=== PATIENT | female | born 1950 | race Caucasian/White ===

== ENCOUNTER 2017-08-15 14:49 | Observation (INO) | payer MEDICARE ==
[~2017-08-15] VITALS: Ht 162.6 cm; Wt 105.2 kg
[~2017-08-15 14:49] MED LIST: ACETAMINOPHEN325 M1; ACETAMINOPHEN650 M5 PO; ADULT LOW DOSE81 MG; AMLODIPINE BESYL5 MG PO; AMOXICILLIN/POTASSIU PO; B 12 PO; B-100 COMPLEX100 MG PO; BENADRYL25 MG PO; CALCIUM 500+D1 EAC2 PO; CIPROFLOXACIN500 M1 PO; CLEOCIN HCL300 MG PO; COMBIVENT; COUMADIN; COUMADIN 10MG T10 M1 PO; COUMADIN 2 MG TA2 M1 PO; CRESTOR5 MG PO; DIAZEPAM 10 MG10 M1; DIAZEPAM 10 MG10 M1 OR; ENOXAPARIN100 MG/1 M SQ; ENOXAPARIN80 MG/0.8; FLEXERIL PO; FORTICAL1 SPRAY NASAL; GLUCOPHAGE500 MG PO; HYDROCODON-ACE1 EAC4 PO; HYDROCODON-ACE1 EAC8 PO; HYDROXYCHLOROQ200 M1 PO; IBUPROFEN 400400 M1 PO; LIDODERM TP; LOVENOX; METFORMIN PO; MIACALCIN; MIRALAX255 GM; NEURONTIN 300300 M1 PO; NORCO 5-325 TA1 EACH PO; OXYCODONE HCL 55 MG PO; PERCOCET 5-3251 EACH; PHENERGAN-CODE120 ML; PREDNISONE PO; PRINIVIL5 MG PO; PROLIA60 MG/1 ML SQ; PROVENTIL HFA6.7 G1 INH; SIMETHICON CHEW80 MG; SYMBICORT80 MCG/4.1 INH; TESSALON200 MG PO; TYLENOL EX-STR500 M2 PO; XANAX 0.5 MG0.5 M1 PO; ZOLOFT100 MG PO
--- NOTE | 2017-08-15 15:43 | NUR ---
PATIENT DIRECTLY ADMITTED FROM [facility]. PATIENT REPORTS SNEEZING WHICH CAUSED SEVERE BACK PAIN ON TUESDAY. PATIENT WAITED TO SEE HER PAINTER HELPER SIGN TODAY. PER PATIENT PAINTER HELPER SIGN STATES THERE IS A COMPRESSION FRACTURE, NO IMAGING DONE. ALERT AND ORIENTED. ADMISSION HITORY AND ASSESSMENT CHARTED. PATIENT AMBULATED TO BATHROOM WITH STANDBY ASSIST. NOTIFIED OF PATIENTS ARRIVAL. ORIENTED TO ROOM. WILL CONTINUE TO MONITOR.
[2017-08-15] MEDS ORDERED: METFORMIN HCL500 MG PO (15:50)
[2017-08-15] MEDS ORDERED: FISH OIL 1,001000 M2 PO (15:52)
[2017-08-15] MEDS ORDERED: IRON CHEWS15 M1 PO (15:54)
[2017-08-15] MEDS ORDERED: VITAMIN D2000 UNIT PO (15:54)
[2017-08-15] MEDS ORDERED: HYDROCHLOROTHIA25 M1 PO (15:55)
[2017-08-15] MEDS ORDERED: TYLENOL EXTRA500 MG PO (15:56)
[2017-08-15] MEDS ORDERED: HYDROCODONE-AP1 EAC6 PO (15:57)
[2017-08-15 16:00] VITALS: BP 132/82
[2017-08-15 17:56] LABS: ABSOLUTE BASOPHILS 0.1 thou/uL (0.0-0.2); ABSOLUTE EOSINOPHILS 0.4 thou/uL (0.0-0.7); ABSOLUTE LYMPHOCYTES 3.3 thou/uL (0.8-5.3); ABSOLUTE MONOCYTES 0.3 thou/uL (0.0-1.2); ABSOLUTE NEUTROPHILS 5.8 thou/uL (1.6-8.1); BASOPHILS 0.8 %; EOSINOPHILS 3.8 %; HEMATOCRIT 43.8 % (37.0-47.0); HEMOGLOBIN 14.5 gm/dL (12.0-15.0); LYMPHOCYTES 33.9 %; MCH 29.5 pg (26.0-34.0); MCHC 33.1 g/dL (28.0-37.0); MONOCYTES 2.7 %; MPV 7.6 fl. (7.2-11.1); NUCLEATED RBCS 0 /100WBC; PLATELET COUNT* 388 thou/uL (150-400); POLYS 58.8 %; RBC 4.92 mil/uL (4.20-5.00); WBC 9.8 thou/uL (4.0-11.0)
[2017-08-15 18:06] LABS: INR 2.5; PROTIME 24.3 Seconds (9.20-11.50)
[2017-08-15 18:16] LABS: ALBUMIN 3.7 g/dL (3.4-5.0); CALCIUM 9.5 mg/dL (8.5-10.1); CREATININE 0.9 mg/dL (0.6-1.3); PHOSPHORUS* 3.1 mg/dL (2.5-4.9)
[2017-08-15 20:00] VITALS: BP 120/76
[2017-08-15 20:58] LABS: URINE BILIRUBIN NEGATIVE (Negative); URINE BLOOD 2+ (Negative); URINE CLARITY CLEAR; URINE COLOR YELLOW; URINE GLUCOSE-RANDOM NEGATIVE (Negative); URINE KETONES NEGATIVE (Negative); URINE LEUKOCYTES-REFLEX NEGATIVE (Negative); URINE NITRITE-REFLEX NEGATIVE (Negative); URINE PROTEIN NEGATIVE (Negative); URINE SPECIFIC GRAVITY 1.015 (1.005-1.030); URINE UROBILINOGEN 0.2 E.U./dl (0.2-1.0)
[2017-08-15 21:10] LABS: SQUAMOUS >10 Many /LPF (0-3)
[2017-08-15 21:11] LABS: BACTERIA-REFLEX None Seen /HPF (None Seen); CASTS None Seen /LPF (None Seen); CRYSTALS None Seen /LPF (None Seen); URINE RBC 3-10 Few /HPF (0-2); URINE WBC-REFLEX None Seen /HPF (0-5)
[2017-08-16 00:16] VITALS: BP 126/76
--- NOTE | 2017-08-16 01:38 | NUR ---
RECIEVED REPORT AND ASSUMED CARE OF PATIENT AT 1930. ASSESSMENT AND VITAL COMPLETED CHARTED, VSS. PATIENT A&OX4. PATIENT ON ROOM AIR WITH O2 SATS >92%. PATIENT C/O PAIN IN BACK, RELIEVED WITH RELAXATION, MUSCLE RUB, AND PRN PAIN MEDICATION. PATIENT UP STANDBY ASSIST TO BATHROOM. PATIENT RESTING COMFORTABLY AT THIS TIME. CALL LIGHT WITHIN REACH
--- NOTE | 2017-08-16 07:30 | NUR ---
RECEIVED REPORT FROM NIGHT NURSE BEING RELIEVED AT APPROXIMATELY 0330. PATIENT IS ALERT AND ORIENTED X 4. VSS ON RA. PAIN CONTROLLED WITH ORAL PAIN MEDICATION AND CHARTED. PATIENT IS UP WITH SBA AND STEADY. IV IN RIGHT AC-SL. PATIENT INSTRUCTED TO USE CALL LIGHT WHEN NEEDING ASSISTANCE. HOURLY ROUNDS MADE. WILL CONTINUE WITH PLAN OF CARE AND NURSING TO MONITOR.
[2017-08-16 08:00] VITALS: BP 127/74
[2017-08-16] MEDS ORDERED: PERCOCET 7.5-31 EACH PO (14:34)
[2017-08-16] MEDS ORDERED: [UNRECOGNIZED DRUG - OTHER] TRANSDERM (14:34)
[2017-08-16] MEDS ORDERED: LIDODERM1 EACH TRANSDERM (14:34)
[2017-08-16] MEDS ORDERED: METAMUCIL1 EAC1 PO (15:26)
[2017-08-16 16:02] VITALS: BP 127/74
[2017-08-16 16:05] VITALS: BP 127/74
--- NOTE | 2017-08-16 18:22 | NUR ---
ALERT AND ORIENTED X4. UP WITH STANDBY ASSIST. PAIN MANAGED WITH IV PAIN MEDICATION IN THE AM. PAIN MANAGED WITH PO PAIN MEDICATION IN PM. IV IS PATENT AND SALINE LOCKED. VITAL SIGNS STABLE ON ROOM AIR. HOURLY ROUNDS HAVE BEEN MAINTAINED THROUGHOUT SHIFT. TOLERATED CARB CONTROL DIET THROUGHOUT SHIFT. CALL LIGHT WITHIN REACH. BED ALARM ON. NURSING WILL CONTINUE TO MONITOR.
--- NOTE | 2017-08-16 18:32 | NUR ---
ALERT AND ORIENTED X4. UP WITH STANDBY ASSIST. PAIN MANAGED WITH IV PAIN MEDICATION IN THE AM. PAIN MANAGED WITH PO PAIN MEDICAITON IN PM. IV DISCONTINUED. VITAL SIGNS STABLE ON ROOM AIR. HOURLY ROUNDS HAVE BEEN MAINTAINED THROUGHOUT SHIFT. TOLERATED CARB CONTROL DIET THROUGHOUT SHIFT. DISCHARGE INSTRUCTIONS AND PRESCRIPTIONS WENT OVER WITH PATIENT. BELONGINGS WITH PATIENT AND READY FOR DISCHARGE. PATIENT WILL DISCHARGE WHEN HER RIDE ARRIVES. NURSING WILL CONTINUE TO MONITOR UNTIL THEN.
[2017-08-16 19:24] VITALS: BP 127/74
== END 2017-08-16 19:25 | disposition home or self-care (01) ==
LOC: M.ORTHSURG 14:49 → M.TBA 15:05 → M.ORTHSURG 15:22
PROVIDERS: ADMIT Internal Medicine
DX: M51.36 Other intervertebral disc degeneration, lumbar region (principal); I10 Essential (primary) hypertension; J44.9 Chronic obstructive pulmonary disease, unspecified; E11.9 Type 2 diabetes mellitus without complications; M81.0 Age-related osteoporosis without current pathological fracture; E66.9 Obesity, unspecified; Z68.39 Body mass index [BMI] 39.0-39.9, adult; Z86.711 Personal history of pulmonary embolism; Z79.01 Long term (current) use of anticoagulants; Z86.73 Personal history of transient ischemic attack (TIA), and cerebral infarction without residual deficits; Z87.891 Personal history of nicotine dependence

== ENCOUNTER → 2018-06-07 | Outpatient (CLI) | payer MEDICARE ==
[~2018-06-07] MED LIST changes: +FISH OIL 1,001000 M2 PO; +HYDROCHLOROTHIA25 M1 PO; +HYDROCODONE-AP1 EAC6 PO; +IRON CHEWS15 M1 PO; +LIDODERM1 EACH TRANSDERM; +METAMUCIL1 EAC1 PO; +METFORMIN HCL500 MG PO; +PERCOCET 7.5-31 EACH PO; +TYLENOL EXTRA500 MG PO; +VITAMIN D2000 UNIT PO; +[UNRECOGNIZED DRUG - OTHER] TRANSDERM
== END ==
LOC: M.MRI 06-01 08:30
DX: M47.26 Other spondylosis with radiculopathy, lumbar region (principal); M43.16 Spondylolisthesis, lumbar region; M51.16 Intervertebral disc disorders with radiculopathy, lumbar region; M48.062 Spinal stenosis, lumbar region with neurogenic claudication; M51.35 Other intervertebral disc degeneration, thoracolumbar region; M51.37 Other intervertebral disc degeneration, lumbosacral region; R29.898 Other symptoms and signs involving the musculoskeletal system; Z79.899 Other long term (current) drug therapy

== ENCOUNTER → 2018-08-31 | Outpatient (CLI) | payer MEDICARE | LOC: M.MRI 08-29 16:59 → M.RAD 10:29 → M.MRI 11:30 | DX: Z12.31 Encounter for screening mammogram for malignant neoplasm of breast (principal); S22.000D Wedge compression fracture of unspecified thoracic vertebra, subsequent encounter for fracture with routine healing; M16.0 Bilateral primary osteoarthritis of hip; M25.78 Osteophyte, vertebrae; M81.0 Age-related osteoporosis without current pathological fracture; M40.294 Other kyphosis, thoracic region; W19.XXXD Unspecified fall, subsequent encounter ==

== ENCOUNTER → 2018-09-26 | Outpatient (CLI) | payer MEDICARE ==
[~2018-09-26] MED LIST changes: +COUMADIN 1MG TAB1 M1 PO; +PROPRANOLOL 1010 MG PO; +TRAMADOL 50 MG50 MG PO; +ZANAFLEX4 MG PO
--- NOTE | ~2018-09-26 | PAINCON ---
[address] [address] PAIN MANAGEMENT CONSULTATION Name: KEV OLVERA Room: [facility] REJI Ruvalcaba#: [id number] Admission: 09/26/18 Attend Phys: Bello Olivares MD Discharge: Date of : 52 Report #: [id number] THIS REPORT FOR: //name// CC: Bello Tsai DATE OF SERVICE: 09/26/2018 CHIEF COMPLAINT: Thoracic fracture. HISTORY OF PRESENT ILLNESS: The patient has had pain, which has been ongoing for greater than 5 years. She describes it as sharp pain in the lower to mid back area. She is having pain that is radiating down into her hips and it has worsened over the last 4 months. She notes that the pain is worse with the change in weather we have been experiencing. She is not sure of much that improves it. ____ items in the past have only provided temporary relief. She describes it as continuous, sharp, stabbing, and rates it as a 10/10 today. It involves her mid back, low back areas, with pain that radiates down into the knees. She gives a long history in 1970 where she "broke her tailbone." She is not sure how much of this comes into play with her current pain. In 1988, she gave . She states that her tailbone was broken at that time. She has had pain, which has waxed and waned. She has had a number of back surgeries. She has had ruptured disc as well as a number of compression fractures. She has noted pain and fracture after a hard sneeze. She has had "cement" placed in the affected areas in the past. She has fallen in her house. She states that she has fallen down steps in the past. Over the last 4 months, she has noted worsening of her pain. She has used gabapentin, tramadol, Tylenol, and muscle relaxants. She describes aggravating factors as walking, sitting, standing, going up and down stairs. She has tried [id number] medications. She has used Biofreeze and Icy Hot. She was seen at [facility]. She was told that she has spinal stenosis. She was seen by a surgeon at that time. She does complain of some leg weakness. She uses a back brace at home. She has fallen on a couple of occasions. The patient has used prednisone in the past and found that it was somewhat helpful. ALLERGIES: SULFA. MEDICATIONS: Tylenol 650 mg, alprazolam 0.5 mg, Biofreeze Roll-On 4% gel, gabapentin 300 mg one capsule by mouth two times daily, hydrochlorothiazide 25 mg, lisinopril 5 mg, metformin 500 mg, ropinirole one tablet 10 mg, sertraline 100 mg two tablets two times daily, tizanidine 4 mg q. six hours p.r.n., tramadol 50 mg one to two tablets p.r.n., vitamin B12 of 1000 mcg, vitamin D3 of 1000 units, warfarin 2 mg, warfarin 1 mg. PAST MEDICAL HISTORY: Allergic rhinitis, chronic obstructive pulmonary disease, chronic tension headaches, CYP2C9 deficiency, diabetes with mononeuropathy, [address] [address] PAIN MANAGEMENT CONSULTATION Name: KEV OLVERA [facility] [id number] Admission: 09/26/18 Attend Phys: Bello Olivares MD Discharge: Date of : 52 Report #: [id number] diverticulosis, primary hypertension, essential tremor, fatty liver, fibromyalgia, gastroesophageal reflux without esophagitis, history of colon polyps, history of CVA, history of irritable bowel syndrome, iron deficiency anemia, leg cramps, localized edema, mixed hyperlipidemia, neuropathy, obesity. PAST SURGICAL HISTORY: Splenectomy in 1984, hysterectomy in 1993, many back surgeries from 1994 to 2015, gallbladder surgery in 2015, right and left knee surgery meniscus in 2000. SOCIAL HISTORY: She is disabled, retired for the last 5 years. REVIEW OF SYSTEMS: Weight change, fatigue, weakness, headaches, wears glasses, poor vision, ringing in the ears, chronic sinus problems, heart trouble, chest pain, palpitations, shortness of breath, swelling of feet, wheezing, frequent diarrhea, tremors, recurring headaches, lightheadedness, numbness and tingling sensation, nervousness, depression, insomnia, joint pain, joint stiffness and swelling, weakness of muscles, muscle pain, cramping, back pain, difficulty walking. DIAGNOSTIC DATA: MRI of the lumbar spine, date 08/31/2018: There are multiple chronic appearing compression deformities involving the thoracic spine. There are treated compression fractures at T12 and L1. Chronic superior endplate compression fractures are seen in the mid thoracic spine. There is questionable acute or subacute compression fractures of the superior endplate at T8 with subtle soft tissue edema in the prevertebral space and adjacent to the right anterolateral osteophyte. There is no central canal stenosis at any level. There is no traumatic disc protrusion. Epidural space is preserved. The costal junction is intact at all levels and unremarkable. Facet joints were intact. Spinal cord intensity is normal. Impression: Generalized osteoporosis with chronic compression fractures throughout the mid to distal thoracic spine and upper lumbar spine. There is questionable acute versus subacute fracture involving the right superior endplate of T8. PAIN CLINIC ASSESSMENT/PQRS: 1. The patient is not being treated for rheumatoid arthritis. She does have some arthritic changes with lumbar compression fractures in her back. 2. Height 5 feet 4 inches, weight 230 pounds, BMI 39.8. 3. Vital signs: Blood pressure 139/83, heart rate 85, respiratory rate 16, room air saturation 93%, temperature 98.1. 4. Pain intensity: 9/10. 5. Fall history: The patient states that she has had falls on a number of occasions. 6. Blood thinner: The patient is on Coumadin. 7. History of hypertension: The patient is being treated for hypertension. 8. Opioids greater than 6 weeks: The patient is not on an opioid [place] [address] PAIN MANAGEMENT CONSULTATION Name: KEV OLVERA Room: [facility]#: [id number] Admission: 09/26/18 Attend Phys: Bello Olivares MD Discharge: Date of : 52 Report #: [id number] 9. Risk assessment tool: Moderate for opioid use. 10. Functional assessment tool: 58/70. 11. Recreational drug use: The patient denies use of recreational drugs. 12. Tobacco: The patient denies use of tobacco at this juncture. 13. Alcohol: The patient denies frequent use of alcoholic beverages. PHYSICAL EXAMINATION: GENERAL: The patient is a well-developed, obese white female. She appears her stated age. She is alert and oriented x 3. Her affect is appropriate. Speech is fluent. HEENT: Normocephalic, atraumatic. Extraocular eye muscles intact. Sclerae nonicteric. Mucous membranes are moist. The patient has dentures in place. HEART: Regular rate. ABDOMEN: Nontender, protuberant. Bowel sounds present. MUSCULOSKELETAL: She complains of pain in the low back area in the midline as well as in the left and right hips. Upper extremity muscle strength is judged to be 5-/5 for the major muscle groups in the upper extremities. The patient is without significant scoliosis. She complains of pain and discomfort in her knees bilaterally. IMPRESSION AND RECOMMENDATIONS: Chronic low back pain with pain radiating down into the low back and lumbar area. The patient does wear a lumbar back support. Possibility of an epidural steroid injection was discussed with the patient. At this point, she will check with her primary physician and see whether or not she can stop her Coumadin for 5 days. If she elects, she would have to have an INR of less than 1.2. The patient will follow up in the near future. We would like to thank you for letting us participate in her care. We hope she continues to improve. By: [id number]. Tre Olivares MD /shelley
== END ==
LOC: M.PC 08:10
DX: G89.29 Other chronic pain (principal); M54.5 Low back pain; J44.9 Chronic obstructive pulmonary disease, unspecified; E11.41 Type 2 diabetes mellitus with diabetic mononeuropathy; G58.9 Mononeuropathy, unspecified; I10 Essential (primary) hypertension; K21.9 Gastro-esophageal reflux disease without esophagitis; E78.2 Mixed hyperlipidemia; Z88.2 Allergy status to sulfonamides; Z79.899 Other long term (current) drug therapy; Z86.73 Personal history of transient ischemic attack (TIA), and cerebral infarction without residual deficits; Z90.49 Acquired absence of other specified parts of digestive tract; Z90.710 Acquired absence of both cervix and uterus; Z79.891 Long term (current) use of opiate analgesic; Z79.84 Long term (current) use of oral hypoglycemic drugs

== ENCOUNTER → 2018-10-03 | Outpatient (CLI) | payer MEDICARE ==
--- NOTE | ~2018-10-03 | PAINCON ---
[address] [address] PAIN MANAGEMENT CONSULTATION Name: KEV OLVERA Room: [facility] REJI Ruvalcaba#: [id number] Admission: 10/03/18 Attend Phys: Bello Olivares MD Discharge: Date of : 52 Report #: [id number] THIS REPORT FOR: //name// CC: Bello Tsai DATE OF SERVICE: 10/03/2018 CHIEF COMPLAINT: History of thoracic fracture. HISTORY: The patient is a 68-year-old female who has had chronic pain in her low back area. She suffers from significant osteoporosis. She has undergone a number of compression fractures with treatment of vertebroplasties. She is having pain in her mid back area. She has returned to the Pain Clinic today for an epidural steroid injection. She states that her pain continues to be quite problematic. She rates it as 8/10 at this point. She continues to use her gabapentin, tizanidine, tramadol, Tylenol to help control the pain. She has a history of spinal stenosis. She does use a brace at home. She has fallen on a few occasions. ALLERGIES: SULFA. CURRENT MEDICATIONS: Tylenol 650 mg, alprazolam 0.5 mg, Biofreeze Roll-on gel 4%, gabapentin 300 mg one capsule by mouth b.i.d., hydrochlorothiazide 25 mg, lisinopril 5 mg, metformin 500 mg, ropinirole one tablet 10 mg, sertraline 100 mg two tablets b.i.d., tizanidine 4 mg q. six hours p.r.n., tramadol 50 mg two tablets p.r.n., vitamin B12 of 1000 mcg, vitamin D3 of 1000 units, warfarin 2 mg and 1 mg. PAIN CLINIC ASSESSMENT/PQRS: 1. The patient is not being treated for rheumatoid arthritis. She does have arthritic changes with numerous compression fractures in her low back area. 2. Height 5 feet 4 inches, weight 230 pounds, BMI 39.7. 3. Vital signs: Blood pressure 144/79, heart rate 83, respiratory rate 16, room air saturation is 92%, temperature 98.4. 4. Pain intensity: 8/10. 5. Fall history: The patient states that she has fallen on a number of occasions. 6. Blood thinner: The patient has not taken her Coumadin and says her INR is 1. She does take this at home. 7. Hypertension: The patient is not being treated for hypertension. 8. Opioids greater than 6 weeks: The patient is not on an opioid regimen. 9. Risk assessment tool: Moderate for opioid use. 10. Functional assessment tool: 58/70. 11. Recreational drug use: The patient denies use of recreational drugs. 12. Tobacco: The patient [place] [address] PAIN MANAGEMENT CONSULTATION Name: KEV OLVERA Room: [facility]#: [id number] Admission: 10/03/18 Attend Phys: Bello Olivares MD Discharge: Date of : 52 Report #: [id number] 13. Alcohol: The patient denies use of alcoholic beverages at this juncture. PHYSICAL EXAMINATION: GENERAL: The patient is a well-developed, well-nourished white female. She is obese. She appears her stated age. She is alert and oriented x 3. Her affect is appropriate. Speech is fluent. HEENT: Normocephalic, atraumatic. Extraocular eye muscles intact. Sclerae nonicteric. Mucous membranes are moist. The patient has dentures in place. She has glasses. HEART: Regular rate. ABDOMEN: Nontender. Bowel sounds present. MUSCULOSKELETAL: Pain in the midline area as well as pain into the left and right hips. Upper extremity muscle strength judged to be 5-/5 for the major muscle groups. The patient is without significant scoliosis. She complains of pain and discomfort in her knees. She has pain and discomfort today in the lumbar area, near the L2-L3. This appears to be the most uncomfortable area today and she would like to undergo an injection. IMPRESSION: 1. Lumbar radiculopathy in L2-L3 area. 2. History of osteoporosis and numerous compression fractures. 3. Left and right knee surgery. 4. Chronic obstructive pulmonary disease. 5. Chronic tension headaches. 6. CYP2C9 deficiency. 7. Diabetes with mononeuropathy. 8. Diverticulosis. 9. Primary hypertension. 10. Essential tremor. 11. Fatty liver. 12. Fibromyalgia. 13. Gastroesophageal reflux. 14. History of colon polyps. 15. History of CVA. 16. History of irritable bowel syndrome. 17. Iron deficiency anemia. 18. Mixed hyperlipidemia. 19. Neuropathy. 20. Obesity. RECOMMENDATIONS: We discussed treatment options with the patient. Risks and benefits of the procedure were discussed. The patient has stopped taking her Coumadin with the desire to undergo an injection today. Risks and benefits were again reviewed and they could include infection, worsening of pain, bleeding, nerve trauma, spinal headache, and the [place] [address] PAIN MANAGEMENT CONSULTATION Name: KEV OLVERA Room: [facility]#: [id number] Admission: 10/03/18 Attend Phys: Bello Olivares MD Discharge: Date of : 52 Report #: [id number] PROCEDURE NOTE: The patient was taken to the procedure area. She was then assisted in getting on the examination table. Her back was sterilely prepped with a Betadine solution. At L2-L3, 0.25% bupivacaine was infiltrated. A 17-gauge Tuohy with loss of resistance technique was used to gain access to the epidural space. There was no CSF, heme or paresthesia. A total of 80 mg Depo-Medrol, 40 mg triamcinolone and 2 mL of 0.25% bupivacaine was injected. The patient tolerated the procedure well. There were no complications. She remained in the Pain Clinic for an appropriate amount of time. She will follow up in the future as needed. We would like to thank you for letting us participate in her care. We hope she continues to improve. By: [id number]. Tre Olivares MD /shelley
== END | disposition home or self-care (01) ==
LOC: M.PC 04:50
DX: M54.16 Radiculopathy, lumbar region (principal); G89.29 Other chronic pain; E11.41 Type 2 diabetes mellitus with diabetic mononeuropathy; M81.0 Age-related osteoporosis without current pathological fracture; K21.9 Gastro-esophageal reflux disease without esophagitis; E78.2 Mixed hyperlipidemia; I10 Essential (primary) hypertension; M79.7 Fibromyalgia; J44.9 Chronic obstructive pulmonary disease, unspecified; R51 Headache; E66.09 Other obesity due to excess calories; D50.9 Iron deficiency anemia, unspecified; Z98.890 Other specified postprocedural states; Z86.73 Personal history of transient ischemic attack (TIA), and cerebral infarction without residual deficits; Z86.010 Personal history of colon polyps; Z68.39 Body mass index [BMI] 39.0-39.9, adult; Z88.2 Allergy status to sulfonamides; Z79.899 Other long term (current) drug therapy; Z88.0 Allergy status to penicillin

== ENCOUNTER → 2018-11-09 | Outpatient (CLI) | payer MEDICARE ==
--- NOTE | ~2018-11-09 | PAINCON ---
[address] [address] PAIN MANAGEMENT CONSULTATION Name: KEV OLVERA Room: [facility] REJI Ruvalcaba#: [id number] Admission: 11/09/18 Attend Phys: Bello Olivares MD Discharge: Date of : 52 Report #: [id number] THIS REPORT FOR: //name// CC: Bello Tsai DATE OF SERVICE: 11/09/2018 CHIEF COMPLAINT: Here for another epidural steroid injection. Things are about 50% better. HISTORY: The patient is a 68-year-old female who has been followed in the pain clinic. As you recall, she suffers from significant amounts of osteoporosis. She has undergone a number of compression fractures in the past. She has undergone vertebroplasties. She has continued to have some pain in her back. She underwent an epidural steroid injection at L2-L3 at the last visit. Overall, she feels her pain is about 50% better. She has had no complications from the procedure. She in fact would like to proceed with another injection. She feels that she should have undergone this procedure some time ago, because of the improvement in pain she has experienced. She notes pain is problematic with activity, walking, sitting, standing, lifting, and bending. Pain is improved with rest. She has stopped her Coumadin with a desire to undergo an epidural steroid injection at this point. As you recall, she has a history of spinal stenosis. She does use a brace when she is at home. She has fallen on a few occasions. ALLERGIES: SULFA. CURRENT MEDICATIONS: Tylenol 600 mg, alprazolam 0.5 mg, Biofreeze Roll-on gel 4%, gabapentin 300 mg 1 capsule by mouth b.i.d., hydrochlorothiazide 25 mg, lisinopril 5 mg, metformin 500 mg, ropinirole 1 tablet 10 mg, sertraline 100 mg 2 tablets b.i.d., tizanidine 4 mg q. 6 hours p.r.n., tramadol 50 mg 2 tablets p.r.n., vitamin B12 1000 mcg, vitamin D3 1000 units, and warfarin 2 mg and 1 mg. PAIN CLINIC ASSESSMENT AND PQRS: 1. The patient is not being treated for rheumatoid arthritis. She does have arthritic changes with numerous compression fractures and osteoporosis. 2. Height 5 feet 3 inches, weight 230 pounds, BMI is 40.9. 3. VITAL SIGNS: Blood pressure 119/75, heart rate 85, respiratory rate 16, room air saturation is 92%, temperature 97.7. 4. Pain intensity is 4.5/5. 5. Fall history: The patient has not fallen since we saw her last. 6. Blood thinner. The patient is not on a blood thinning medication. She has stopped taking Coumadin with a desire of undergoing an epidural steroid injection. Her INR was 1. 7. Hypertension. The patient is not being [place] [address] PAIN MANAGEMENT CONSULTATION Name: KEV OLVERA Room: [facility]#: [id number] Admission: 11/09/18 Attend Phys: Bello Olivares MD Discharge: Date of : 52 Report #: [id number] 8. Opioids greater than 6 weeks. The patient is not on an opioid regimen. 9. Risk assessment tool, moderate for opioid use. 10. Functional assessment tool 58/70. 11. Recreational drug use. The patient denies use of recreational drugs. 12. Tobacco: The patient denies use of tobacco. 13. Alcohol: The patient denies use of alcoholic beverages. PHYSICAL EXAMINATION: GENERAL: The patient is a well-developed, well-nourished, somewhat obese white female. Appears her stated age. She is alert and oriented x 3. Her affect is appropriate. Speech is fluent. HEENT: Normocephalic, atraumatic. Extraocular eye muscles intact. Sclerae nonicteric. Mucous membranes moist. NECK: Without adenopathy. The patient is wearing her glasses. HEART: Regular rate. ABDOMEN: Nontender. Bowel sounds present. EXTREMITIES: Upper extremity muscle strength is judged to be 5-/5 for the major muscle groups. Lower extremity muscle strength is judged to be 5-/5 for the major muscle groups. The patient is without significant scoliosis. She does complain of some discomfort in her knees. Has pain in the lumbar area near the L2-L3 dermatomal distribution. The patient is desiring to proceed with an epidural steroid injection. IMPRESSION: 1. Lumbar radiculopathy in the L2-L3 area. 2. History of osteoporosis with numerous compression fractures. 3. Left and right knee surgery. 4. Chronic obstructive pulmonary disease. 5. Chronic tension headaches. 6. ____ deficiency. 7. Diabetes with a mononeuropathy. 8. Diverticulosis. 9. Primary hypertension. 10. Essential tremor. 11. Fatty liver. 12. Fibromyalgia. 13. Gastroesophageal reflux. 14. History of colon polyp. 15. History of cerebrovascular accident. 16. History of irritable bowel syndrome. 17. Iron deficiency anemia. 18. Mixed hyperlipidemia. 19. Neuropathy. 20. Obesity. RECOMMENDATIONS: We discussed treatment options with the patient. Again, the [place] [place] [place] [address] PAIN MANAGEMENT CONSULTATION Name: KEV OLVERA Room: [facility]#: [id number] Admission: 11/09/18 Attend Phys: Bello Olivares MD Discharge: Date of : 52 Report #: [id number] possible complications of an epidural steroid injection were discussed. They include but are not limited to infection, worsening pain, no improvement in pain, trauma, infection, nerve damage with paralysis. The patient elects to proceed. PROCEDURE NOTE: The patient was taken to the procedure room. She was assisted by the staff in getting on the examination table. She was placed in the prone position. After appropriate placement and the patient was settled her back was sterilely prepped with a Betadine solution. Fluoroscopy using anterior, posterior as well as lateral viewing were implemented. The patient's back at L1-L2 was identified. A 0.25% bupivacaine was infiltrated. A 17-gauge Tuohy with loss of resistance technique was used to gain access to the epidural space after it had been anesthetized using 0.25% bupivacaine. A total of 80 mg Depo-Medrol, 40 mg triamcinolone and 2 mL of 0.25% bupivacaine was injected. The patient tolerated the procedure well. There were no complications. She remained in the Pain Clinic for an appropriate amount of time. She will follow up in the future as needed. We would like to thank you for letting us participate in her care. We hope she continues to improve. By: [id number]. MD osiris Ledezma
== END | disposition home or self-care (01) ==
LOC: M.PC 10-31 01:41
DX: M54.16 Radiculopathy, lumbar region (principal); G89.29 Other chronic pain; I10 Essential (primary) hypertension; E11.41 Type 2 diabetes mellitus with diabetic mononeuropathy; J44.9 Chronic obstructive pulmonary disease, unspecified; M79.7 Fibromyalgia; K21.9 Gastro-esophageal reflux disease without esophagitis; D50.9 Iron deficiency anemia, unspecified; G44.221 Chronic tension-type headache, intractable; E78.2 Mixed hyperlipidemia; E66.09 Other obesity due to excess calories; Z86.73 Personal history of transient ischemic attack (TIA), and cerebral infarction without residual deficits; Z87.19 Personal history of other diseases of the digestive system; Z86.010 Personal history of colon polyps; Z87.310 Personal history of (healed) osteoporosis fracture; Z88.2 Allergy status to sulfonamides; Z79.899 Other long term (current) drug therapy; Z98.890 Other specified postprocedural states; Z88.0 Allergy status to penicillin

== ENCOUNTER 2019-02-26 19:32 | Emergency (ER) | payer MEDICARE ==
[~2019-02-26] VITALS: Ht 162.6 cm; Wt 104.3 kg
[2019-02-26] MEDS ORDERED: LASIX 20 MG TAB20 MG PO (19:56)
[2019-02-26 20:31] LABS: ABSOLUTE BASOPHILS 0.1 thou/uL (0.0-0.2); ABSOLUTE EOSINOPHILS 0.4 thou/uL (0.0-0.7); ABSOLUTE LYMPHOCYTES 2.7 thou/uL (0.8-5.3); ABSOLUTE MONOCYTES 0.9 thou/uL (0.0-1.2); ABSOLUTE NEUTROPHILS 6.8 thou/uL (1.6-8.1); BASOPHILS 1.1 %; EOSINOPHILS 3.5 %; HEMATOCRIT 38.4 % (37.0-47.0); HEMOGLOBIN 12.5 gm/dL (12.0-15.0); LYMPHOCYTES 24.4 %; MCH 27.6 pg (26.0-34.0); MCHC 32.7 g/dL (28.0-37.0); MCV 84.4 fL (80.0-100.0); MONOCYTES 8.4 %; MPV 7.7 fl. (7.2-11.1); NUCLEATED RBCS 0 /100WBC; PLATELET COUNT* 395 thou/uL (150-400); POLYS 62.6 %; RBC 4.55 mil/uL (4.20-5.00); RDW-CV 17.6 % (10.5-14.5); WBC 10.9 thou/uL (4.0-11.0)
[2019-02-26 20:39] LABS: CALCIUM 9.9 mg/dL (8.5-10.1); CREATININE 1.1 mg/dL (0.6-1.3); INR 2.4; POTASSIUM 3.9 mmol/L (3.5-5.1); PROTIME 23.7 Seconds (9.20-11.50)
[2019-02-26] MEDS ORDERED: FLEXERIL PO (22:31)
[2019-02-26] MEDS ORDERED: NORCO 7.5-3251 EACH PO (22:31)
[2019-02-26 22:50] VITALS: BP 90/55
--- NOTE | 2019-02-27 17:19 | EKG ---
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
== END 2019-02-26 22:30 | disposition home or self-care (01) ==
LOC: M.ERS 19:32
PROVIDERS: Emergency Medicine
DX: S22.41XA Multiple fractures of ribs, right side, initial encounter for closed fracture (principal); S50.11XA Contusion of right forearm, initial encounter; M25.561 Pain in right knee; J44.9 Chronic obstructive pulmonary disease, unspecified; E11.9 Type 2 diabetes mellitus without complications; I10 Essential (primary) hypertension; M81.0 Age-related osteoporosis without current pathological fracture; F17.210 Nicotine dependence, cigarettes, uncomplicated; Z90.710 Acquired absence of both cervix and uterus; Z90.49 Acquired absence of other specified parts of digestive tract; Z86.73 Personal history of transient ischemic attack (TIA), and cerebral infarction without residual deficits; Z86.711 Personal history of pulmonary embolism; Z88.0 Allergy status to penicillin; Z88.2 Allergy status to sulfonamides; W18.39XA Other fall on same level, initial encounter; Y93.89 Activity, other specified; Y92.59 Other trade areas as the place of occurrence of the external cause; Y99.8 Other external cause status

== ENCOUNTER 2019-08-23 16:21 | Emergency (ER) | payer MEDICARE ==
[~2019-08-23] VITALS: Ht 160 cm; Wt 104.3 kg
[~2019-08-23 16:21] MED LIST changes: +LASIX 20 MG TAB20 MG PO; +NORCO 7.5-3251 EACH PO
[2019-08-23 18:01] LABS: APTT 40.8 Seconds (25.0-31.3); INR 1.7; PROTIME 16.7 Seconds (9.20-11.50)
[2019-08-23 19:11] VITALS: BP 115/67
== END 2019-08-23 19:11 | disposition home or self-care (01) ==
LOC: M.ERS 16:21
PROVIDERS: Physician Assistant
DX: S32.029A Unspecified fracture of second lumbar vertebra, initial encounter for closed fracture (principal); S22.9XXA Fracture of bony thorax, part unspecified, initial encounter for closed fracture; S63.501A Unspecified sprain of right wrist, initial encounter; R51 Headache; F17.210 Nicotine dependence, cigarettes, uncomplicated; J44.9 Chronic obstructive pulmonary disease, unspecified; I10 Essential (primary) hypertension; E11.9 Type 2 diabetes mellitus without complications; Z90.710 Acquired absence of both cervix and uterus; Z90.49 Acquired absence of other specified parts of digestive tract; Z88.2 Allergy status to sulfonamides; Z88.0 Allergy status to penicillin; Z79.899 Other long term (current) drug therapy; Z90.81 Acquired absence of spleen; Z86.73 Personal history of transient ischemic attack (TIA), and cerebral infarction without residual deficits; Z86.711 Personal history of pulmonary embolism; W10.9XXA Fall (on) (from) unspecified stairs and steps, initial encounter; Y93.89 Activity, other specified; Y92.89 Other specified places as the place of occurrence of the external cause; Y99.8 Other external cause status

== ENCOUNTER → 2019-12-06 | Outpatient (CLI) | payer MEDICARE | LOC: M.RAD 15:33 | PROVIDERS: ATTEND Registered Nurse Diabetes Educator | DX: I51.7 Cardiomegaly (principal); J84.10 Pulmonary fibrosis, unspecified; R06.02 Shortness of breath; S24.109D Unspecified injury at unspecified level of thoracic spinal cord, subsequent encounter; S22.39XD Fracture of one rib, unspecified side, subsequent encounter for fracture with routine healing; X58.XXXD Exposure to other specified factors, subsequent encounter ==

== ENCOUNTER 2020-04-09 11:16 | Inpatient (IN) | payer MEDICARE ==
[~2020-04-09] VITALS: Ht 162.6 cm; Wt 112.2 kg
[2020-04-09 11:16] VITALS: BP 162/93
[~2020-04-09 11:16] MED LIST changes: +JANTOVEN7.5 MG PO
[2020-04-09 11:54] LABS: URINE BLOOD 2+ (Negative); URINE CLARITY SL CLOUDY; URINE COLOR DARK YELLOW; URINE GLUCOSE-RANDOM NEGATIVE (Negative); URINE KETONES 2+ (Negative); URINE LEUKOCYTES-REFLEX NEGATIVE (Negative); URINE NITRITE-REFLEX NEGATIVE (Negative); URINE PROTEIN TRACE (Negative); URINE SPECIFIC GRAVITY 1.025 (1.005-1.030)
[2020-04-09 11:57] LABS: ICTOTEST (BILI CONFIRMATORY) Positive (Negative); URINE BILIRUBIN 2+ (Negative)
[2020-04-09 11:59] LABS: HEMATOCRIT 44.3 % (37.0-47.0); HEMOGLOBIN 14.3 gm/dL (12.0-15.0); MCH 26.8 pg (26.0-34.0); MCHC 32.4 g/dL (28.0-37.0); MCV 82.7 fL (80.0-100.0); MPV 7.7 fl. (7.2-11.1); NUCLEATED RBCS 0 /100WBC; PLATELET COUNT* 481 thou/uL (150-400); RBC 5.36 mil/uL (4.20-5.00); RDW-CV 18.2 % (10.5-14.5); WBC 16.7 thou/uL (4.0-11.0)
[2020-04-09 12:04] LABS: BACTERIA-REFLEX 1-9 Few /HPF (None Seen); MUCUS 4-6 Moderate strn/LPF (None Seen); RENAL EPITHELIAL CELLS 0-3 Few /LPF (None Seen); SQUAMOUS 0-3 Few /LPF (0-3); URINE WBC-REFLEX 0-5 Rare /HPF (0-5)
[2020-04-09 12:05] LABS: CASTS None Seen /LPF (None Seen); CRYSTALS None Seen /LPF (None Seen)
[2020-04-09 12:12] LABS: CALCIUM 10.3 mg/dL (8.5-10.1); CREATININE 0.7 mg/dL (0.6-1.3); POTASSIUM 3.3 mmol/L (3.5-5.1)
[2020-04-09 12:14] LABS: APTT 44.7 Seconds (25.0-31.3); INR 2.2; PROTIME 22.2 Seconds (9.20-11.50)
[2020-04-09 12:16] LABS: TOTAL BILIRUBIN 0.9 mg/dL (<0.1-1.0)
[2020-04-09 12:40] LABS: ABSOLUTE BASOPHILS 0.2 thou/uL (0.0-0.2); ABSOLUTE EOSINOPHILS 0.2 thou/uL (0.0-0.7); ABSOLUTE LYMPHOCYTES 1.8 thou/uL (0.8-5.3); ABSOLUTE MONOCYTES 0.5 thou/uL (0.0-1.2); PLATELET ESTIMATE ADEQUATE
[2020-04-09 17:35] LABS: CALCIUM 9.4 mg/dL (8.5-10.1); CREATININE 0.6 mg/dL (0.6-1.3); POTASSIUM 3.5 mmol/L (3.5-5.1)
[2020-04-09 17:38] LABS: MAGNESIUM 1.6 mg/dL (1.8-2.4); PHOSPHORUS* 3.8 mg/dL (2.5-4.9)
[2020-04-09 19:30] VITALS: BP 113/62
[2020-04-09 19:48] VITALS: BP 113/62
[2020-04-10] VITALS: BP 118/71
--- NOTE | 2020-04-10 03:17 | NUR ---
ASSUMED CARE OF PT FROM THE ER AT 1945. PT IS ALERT AND ORIENTED. VSS. PERRLA. BEDREST. FRCTURED LEFT FIBULA IS SPLINTED. PT IS IN SINUS RYTHM ON THE TELEMETRY. PT IS RESTING COMFORTABLY INBED. RESPIRATIONS ARE EVEN AND NONLABORED. WILL CONTINUE TO MONITOR PT.
[2020-04-10 04:00] VITALS: BP 146/80
[2020-04-10 05:00] LABS: HEMATOCRIT 35.6 % (37.0-47.0); MCH 26.7 pg (26.0-34.0); MCHC 31.6 g/dL (28.0-37.0); MCV 84.6 fL (80.0-100.0); MPV 7.6 fl. (7.2-11.1); RBC 4.21 mil/uL (4.20-5.00); RDW-CV 18.3 % (10.5-14.5); WBC 11.6 thou/uL (4.0-11.0)
[2020-04-10 05:01] LABS: HEMOGLOBIN 11.2 gm/dL (12.0-15.0)
[2020-04-10 05:06] LABS: INR 1.8; PROTIME 18.5 Seconds (9.20-11.50)
[2020-04-10 05:08] LABS: ALBUMIN 2.1 g/dL (3.4-5.0); CALCIUM 8.9 mg/dL (8.5-10.1); CREATININE 0.6 mg/dL (0.6-1.3); MAGNESIUM 1.8 mg/dL (1.8-2.4); PHOSPHORUS* 2.7 mg/dL (2.5-4.9); POTASSIUM 3.2 mmol/L (3.5-5.1)
[2020-04-10 07:30] VITALS: BP 96/53
--- NOTE | 2020-04-10 08:24 | EKG ---
[place] [address] ELECTROCARDIOGRAM REPORT Name: KEV OLVERA Room: [address] ADM IN 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: : 1950 Requested By: Nestor Young Order Number: [id number] MD: Souleymane Schmidt Measurements Intervals [place] Rate: 112 P: 0 KS: 99 QRS: -50 QRSD: 96 T: 85 QT: 352 QTc: 481 Interpretive Statements Sinus tachycardia Inferior infarct, old Artifact in lead(s) II,III,aVR,aVL,aVF,V1,V2,V3,V4,V5,V6 Compared to ECG 02/26/2019 19:46:25 Sinus rhythm no longer present Myocardial infarct finding still present Electronically Signed On 04-10-2020 8:23:53 CDT by Souleymane Schmidt [email or web address] <ELECTRONICALLY SIGNED> By: Souleymane Schmidt MD, FACC 04/10/20 0823 1155 1155 Souleymane Schmidt MD, FACC /EPI
[2020-04-10 09:26] LABS: BE 2.3 mmol/L (-2 to +3); PO2 74.9 mmHg (75.0-100.0)
[2020-04-10 09:30] LABS: PCO2 64.5 mmHg (35.0-45.0); pH 7.291 (7.340-7.450)
[2020-04-10 14:05] VITALS: BP 114/65
--- NOTE | 2020-04-10 15:05 | NUR ---
Pt is A&O. Resides at home alone. Independent. Neighbors provide transportation. Pt uses a cane for mobility. No home o2. No hx of HH or SNF. Goal is home at nd, Pt open to HH. Following.
[2020-04-10 16:03] VITALS: BP 105/62
[2020-04-10 20:00] VITALS: BP 111/61
[2020-04-10 22:38] LABS: BE 7.5 mmol/L (-2 to +3); pH 7.388 (7.340-7.450)
[2020-04-10 22:43] LABS: PO2 55.1 mmHg (75.0-100.0)
[2020-04-11 02:38] LABS: ABSOLUTE BASOPHILS 0.1 thou/uL (0.0-0.2); ABSOLUTE LYMPHOCYTES 0.8 thou/uL (0.8-5.3); ABSOLUTE MONOCYTES 0.1 thou/uL (0.0-1.2); ABSOLUTE NEUTROPHILS 8.2 thou/uL (1.6-8.1); BASOPHILS 0.6 %; HEMATOCRIT 36.2 % (37.0-47.0); HEMOGLOBIN 11.4 gm/dL (12.0-15.0); LYMPHOCYTES 9.2 %; MCH 26.7 pg (26.0-34.0); MCHC 31.3 g/dL (28.0-37.0); MCV 85.2 fL (80.0-100.0); MPV 7.8 fl. (7.2-11.1); NUCLEATED RBCS 0 /100WBC; PLATELET COUNT* 434 thou/uL (150-400); POLYS 89.2 %; RBC 4.26 mil/uL (4.20-5.00); RDW-CV 18.6 % (10.5-14.5); WBC 9.2 thou/uL (4.0-11.0)
[2020-04-11 02:54] LABS: ALBUMIN 2.3 g/dL (3.4-5.0); CREATININE 0.7 mg/dL (0.6-1.3); MAGNESIUM 1.9 mg/dL (1.8-2.4); TOTAL BILIRUBIN 0.3 mg/dL (<0.1-1.0); TOTAL PROTEIN 6.3 g/dL (6.4-8.2)
[2020-04-11 02:59] LABS: POTASSIUM 4.7 mmol/L (3.5-5.1)
[2020-04-11 03:23] LABS: INR 1.6; PROTIME 16.1 Seconds (9.20-11.50)
[2020-04-11 04:30] VITALS: BP 119/73
[2020-04-11 08:00] VITALS: BP 136/76
[2020-04-11 09:24] LABS: BE 6.5 mmol/L (-2 to +3); PO2 69.6 mmHg (75.0-100.0); pH 7.415 (7.340-7.450)
[2020-04-11 09:26] LABS: PCO2 51.5 mmHg (35.0-45.0)
[2020-04-11 11:33] VITALS: BP 144/81
[2020-04-11 13:13] LABS: IgA 266 mg/dL (87-352); IgG 625 mg/dL (586-1602); IgM 11 mg/dL (26-217)
--- NOTE | 2020-04-11 14:47 | NUR ---
Nutrition: Pt admitted for fall at home. Wt is at usual of 239#. Assessed for high BMI. Regular diet ordered. No h/o of DM or high BG, but BG currently is 164-153. Albumin 2.3, prealb 15.3. Per RN, pt is eating fine. Low nutrition risk.
[2020-04-11 16:00] VITALS: BP 161/94
--- NOTE | 2020-04-11 16:18 | NUR ---
Therapy evals orderd. No weekend dc. Pt hopeful to dc home with HH. CM to check therapy evals on Tuesday to determine POC.
[2020-04-11 20:51] VITALS: BP 140/83
[2020-04-11 23:31] VITALS: BP 140/83
[2020-04-12 00:48] VITALS: BP 127/69
[2020-04-12 04:00] VITALS: BP 136/75
--- NOTE | 2020-04-12 04:35 | NUR ---
PT REPORTS PAIN 02/20. REQUESTED FENTANYL BE GIVEN EVERY 2 HOURS PRN. SHE IS ON 3.5L - NC. MAX ASSIST IN BED, WB LIMITATION. RICO CLEAR YELLOW OUTPUT. RECEIVED ALL MEDS SCHEDULED. ALERT AND ORIENTED. REPOSITION EVERY FEW HOURS SHE REQUESTED AND PAIN MEDICATIONS.
[2020-04-12 05:31] LABS: HEMATOCRIT 35.2 % (37.0-47.0); HEMOGLOBIN 11.1 gm/dL (12.0-15.0); MCH 27.1 pg (26.0-34.0); MCHC 31.5 g/dL (28.0-37.0); MPV 7.9 fl. (7.2-11.1); RBC 4.1 mil/uL (4.20-5.00); WBC 10.5 thou/uL (4.0-11.0)
[2020-04-12 05:45] LABS: ALBUMIN 2.3 g/dL (3.4-5.0); CALCIUM 8.7 mg/dL (8.5-10.1); CREATININE 0.6 mg/dL (0.6-1.3); POTASSIUM 4.8 mmol/L (3.5-5.1); TOTAL BILIRUBIN 0.2 mg/dL (<0.1-1.0); TOTAL PROTEIN 6.1 g/dL (6.4-8.2)
[2020-04-12 08:00] VITALS: BP 122/77
[2020-04-12 11:55] VITALS: BP 137/83
--- NOTE | 2020-04-12 15:36 | NUR ---
ASSUMED CARE OF PATIENT THIS AM AT 0730. PATIENT IS ALERT AND ORIENTED X 4. SHE C/O SEVERE BACK AND LEG PAIN. PATIENT MEDICATED FOR PAIN. PATIENT TAKEN TO RADIOLOGY FOR MRI THIS AFTERNOON. SHE HAS BEEN ON O2 AT 4 LITERS TODAY. TELE SHOWS SR TO SB. WILL CONTINUE TO MONITOR.
[2020-04-12 16:00] VITALS: BP 132/86
[2020-04-12 16:48] LABS: INR 2.3; PROTIME 22.7 Seconds (9.20-11.50)
[2020-04-12 20:50] VITALS: BP 132/79; BP 133/75
[2020-04-13 00:26] VITALS: BP 133/75
[2020-04-13 04:34] VITALS: BP 122/69
[2020-04-13 05:54] LABS: INR 2.4; PROTIME 24.3 Seconds (9.20-11.50)
[2020-04-13 08:00] VITALS: BP 168/107
--- NOTE | 2020-04-13 08:42 | NUR ---
PATIENT HAS SLEPT OFF AND ON DURING THE NIGHT AND IS ANXIOUS AT TIMES. VSS ON 4L 02 VIA NASAL CANNULA. MEDICATIONS GIVEN ORDERED AND CHARTED. SPLINT TO LEFT LOWER EXTREMITY IS IN PLACE. RICO TO DEPENDENT DRAINAGE WITH DARK YELLOW URINE OUTPUT. IV IN RIGHT AC-SL. FALL PRECAUTIONS IN PLACE AND HOURLY ROUNDS MADE. WILL CONTINUE WITH PLAN OF CARE AND NURSING TO MONITOR.
[2020-04-13 12:00] VITALS: BP 120/79
[2020-04-13 15:17] LABS: INR 2.3; PROTIME 23.2 Seconds (9.20-11.50)
[2020-04-13 16:00] VITALS: BP 108/60
--- NOTE | 2020-04-13 18:08 | NUR ---
PT IS AO X4 AND VERY ANXIOUS AT TIMES. SHE FELL AT HOME AND WAS ON THE FLOOR FOR THREE DAYS ACCORDING TO THE PT. SHE STATES SHE CRIES A LOT DUE TO THE TRAUMA OF THIS AND THAT SHE HAS TO MAKE SOME LIFESTYLE DECISIONS REGARDING WHERE TO LIVE AND SAFETY. PT HAS FX OF LT LEG THAT IS IN A SPLINT WITH POSSIBLE PENDING SURGURY. SHE REPORTED TO DR TODAY THAT SHE WAS HAVING SOME TROUBLE SWALLOWING AND A ENT CONSULT WAS ORDERED AND DIET WAS CHANGED TO SOFT, WHEN SHE GOT HER DINNER TRAY SOME THINGS WERE OMITTED TO ACCOMODATE THE DIET AND THE PT BECAME TEARFUL STATING SHE WAS VERY HUNGRY AND SHE COULDNT LIVE LIKE THIS, SHE WANTED THIS RN TO CALL THE DR TO GET THE DIET CHANGED BACK, I EXPLAINED THAT WE SOMETIMES NEED TO SACRIFICE FOR A SMALL AMOUNT OF TIME TO ACHIEVE BIG RESULTS TO MAKE OUR LIFE A BIT BETTER. PT COMPLAINING OF NECK PAIN FOR WHICH MUSCLE CREAM WAS ORDERED AND APPLIED. SHE STATES SHE IS TRYING TO STRETCH BETWEEN IV PAIN MEDS AND THIS WAS GIVEN ONLY ONCE THIS DAY SHIFT. PO TYLENOL WAS GIVEN WITH FAIR RESULTS. PT ROLLS AND SITS ON BEDSIDE FOR MEALS. PT HAS RICO WITH CLEAR YELLOW URINE, LAST BM YESTERDAY. BP WAS A BIT ELEVATED THIS AM BUT AM MEDS BROUGHT IT DOWN WNL.
[2020-04-13 19:20] VITALS: BP 111/59
--- NOTE | 2020-04-13 21:26 | NUR ---
INITAL ASSESMENT COMPLETED AT 1920. PT GIVEN PRN OXYCODONE FOR PAIN AND PRN XANAX PER REQUEST. PT ASKING TO EAT SOLID FOOD. INFORMED PT OF DIETARY RESTRICTIONS ORDERED BY DR RUSSO. INFORMED SHE WOULD BE SEEN BY GI DOCTOR TOMORROW REGARDING CHOKING EVENTS SINCE ADMISSION. PT VERBALIZED UNDERSTANDING. CALL LIGHT IN REACH, PT USING PROPERLY.
[2020-04-14] VITALS: BP 116/60
[2020-04-14 04:00] VITALS: BP 141/64
[2020-04-14 09:10] LABS: INR 2.2; PROTIME 22.2 Seconds (9.20-11.50)
[2020-04-14 14:28] VITALS: BP 126/72
[2020-04-14 15:08] LABS: GLOBULIN TOTAL 2.8 g/dL (2.2-3.9); M-SPIKE Not Observed g/dL (Not Observed)
[2020-04-14 20:15] VITALS: BP 114/70
[2020-04-15 04:04] LABS: ABSOLUTE EOSINOPHILS 0.3 thou/uL (0.0-0.7); ABSOLUTE LYMPHOCYTES 3.6 thou/uL (0.8-5.3); ABSOLUTE MONOCYTES 0.6 thou/uL (0.0-1.2); ABSOLUTE NEUTROPHILS 5.1 thou/uL (1.6-8.1); BASOPHILS 0.3 %; EOSINOPHILS 3.6 %; HEMATOCRIT 35.4 % (37.0-47.0); HEMOGLOBIN 11.2 gm/dL (12.0-15.0); LYMPHOCYTES 37.1 %; MCH 26.9 pg (26.0-34.0); MCHC 31.6 g/dL (28.0-37.0); MCV 85.2 fL (80.0-100.0); MONOCYTES 6.5 %; MPV 7.9 fl. (7.2-11.1); NUCLEATED RBCS 0 /100WBC; PLATELET COUNT* 442 thou/uL (150-400); POLYS 52.5 %; RBC 4.16 mil/uL (4.20-5.00); RDW-CV 19.3 % (10.5-14.5); WBC 9.7 thou/uL (4.0-11.0)
[2020-04-15 04:20] LABS: ANION GAP < 0 mmol/L (7-16); BUN 17 mg/dL (7-18); CALCIUM 8.9 mg/dL (8.5-10.1); CHLORIDE 97 mmol/L (98-107); CO2 41 mmol/L (21-32); CREATININE 0.8 mg/dL (0.6-1.3); GLUCOSE 94 mg/dL (70-99); INR 1.6; MAGNESIUM 1.8 mg/dL (1.8-2.4); POTASSIUM 4.3 mmol/L (3.5-5.1); PROTIME 16.5 Seconds (9.20-11.50); SODIUM 135 mmol/L (136-145)
--- NOTE | 2020-04-15 05:02 | NUR ---
ASSUMED CARE OF PT 04/14/20 AT APPROX 1948. PT A&OX4, VSS ON 3L NC - BIPAP WHILE SLEEPING, PT NWB TO LLE MAINTAINED, PAIN MED REQUESTED AND GIVEN ORDERED. HOURLY ROUNDINGS COMPLETE, WILL CONTINUE TO MONITOR.
[2020-04-15 07:45] VITALS: BP 105/75
[2020-04-15] MEDS ORDERED: PROTONIX40 M2 PO (08:42)
[2020-04-15] MEDS ORDERED: HYDROCODON-ACE1 EAC7 PO (08:42)
[2020-04-15] MEDS ORDERED: COLACE 100 MG100 MG PO (08:42)
--- NOTE | 2020-04-15 14:39 | NUR ---
SPOKE WITH PT.ABOUT DISCHARGE PLANNING. SHE LIVES ALONE. SHE SAID WHEN SHE FELL SHE HAD TO LAY ON THE FLOOR FOR 3 DAYS BEFORE SHE COULD CRAWL TO GET HER CELL PHONE. SHE STARTED CRYING. SHE SAID IT WAS AWFUL. ALSO DISCUSSED POSSIBLE SURGERY IN 10-14 DAYS. EXPLAINED SINCE SHE IS NON WB IT WOULD BE BETTER TO GO TO SNF FIRST AND THEN POSSIBLY REHAB AFTER SURGERY. GAVE HER SNF LIST AND PREFERRED FACILITIES. SHE WILL LOOK AT AND CALL CM TO LEAVE A MESSAGE OF WHERE SHE WOULD LIKE REFERRALS MADE.
--- NOTE | 2020-04-15 15:22 | NUR ---
ASSUMED CARE OF PT AT 1400 THIS RN AGREES WITH PREVIOUS ASSESSMENT ON PT. SHE IS EMOTIONAL WHEN SHE CALLED ME TO BEDSIDE TO DISCUSS MOBILITY, SHE STATES SHE FEELS SHE IS WASTING OUR TIME BY HAVING TO CALL US FREQUENTLY FOR ASSISTANCE TO GET TO BSC. I ENCOURAGED HER TO DO HER BEST AND BY GIVING HER BEST EFFORT IT IS NEVER A WASTE OF OUR TIME TO HELP HER PROGRESS.
--- NOTE | 2020-04-15 15:23 | 2DMMODE ---
[place] [address] 2 D/M-MODE ECHOCARDIOGRAM Name: MAYKEV A Room: [address] IN [facility]#: [id number] Admission: 04/09/20 Attend Phys: Richard Velazquez Discharge: Date of : 52 Date of Service: 04/15/20 1523 Report #: [id number] THIS REPORT FOR: cc: Ana Luisa Tsai Tammy RNP [place], Michael J. MD [facility] ~ APPROVED REPORT Study performed: 04/15/2020 14:10:25 EXAM: Comprehensive 2D, Doppler, and color-flow Echocardiogram Patient Location: In-Patient Room #: [facility] BSA: 2.14 HR: 87 bpm BP: 105/75 mmHg Other Information Study Quality: Fair Technically limited study due to inability to position patient. Indications Dyspnea 2D Dimensions IVSd: 10.90 (7-11mm) LVOT Diam: 19.53 (18-24mm) LVDd: 39.31 mm PWd: 10.59 (7-11mm) Ascending Ao: 27.89 (22-36mm) LVDs: 26.08 (25-40mm) Aortic Root: 34.07 mm Volumes Left Atrial Volume (Systole) LA ESV Index: 14.30 mL/m2 Aortic Valve AoV Peak Timi.: 1.52 m/s AO Peak Gr.: 9.26 mmHg LVOT Max P.03 mmHg AO Mean Gr.: 4.80 mmHg LVOT Mean P.19 mmHg LVOT Max V: 1.33 m/s AO V2 VTI: 22.79 cm LVOT Mean V: 0.81 m/s DOMINIQUE (VTI): 3.18 cm2 LVOT V1 VTI: 24.18 [place] [address] 2 D/M-MODE ECHOCARDIOGRAM Name: KEV OLVERA Room: [address] IN [facility]#: [id number] Admission: 04/09/20 Attend Phys: Richard Velazquez Discharge: Date of : 52 Date of Service: 04/15/20 1523 Report #: [id number] Mitral Valve E/A Ratio: 0.75 MV Decel. Time: 261.06 ms MV E Max Timi.: 0.93 m/s MV PHT: 75.71 ms MVA (PHT): 2.91 cm2 TDI E/Lateral E': 13.29 E/Medial E': 11.63 Medial E' Timi.: 0.08 m/s Lateral E' Timi.: 0.07 m/s Pulmonary Valve PV Peak Timi.: 0.86 m/s PV Peak Gr.: 2.97 mmHg Left Ventricle The left ventricle is normal size. There is normal LV segmental wall motion. There is normal left ventricular wall thickness. Left ventricular systolic function is vigorous. LVEF is >70%. Grade I - abnormal relaxation pattern. Right Ventricle The right ventricle is normal size. The right ventricular systolic function is normal. Atria The left atrium size is normal. The right atrium size is normal. Aortic Valve The aortic valve is normal in structure. No aortic regurgitation is present. There is no aortic valvular stenosis. Mitral Valve Mild mitral annular calcification. There is no mitral valve regurgitation noted. No evidence of mitral valve stenosis. Tricuspid Valve The tricuspid valve is normal in structure. There is no tricuspid valve regurgitation noted. Pulmonic Valve The pulmonary valve is normal in structure. There is no pulmonic [place] [address] 2 D/M-MODE ECHOCARDIOGRAM Name: KEV OLVERA Room: [address]#: [id number] Admission: 04/09/20 Attend Phys: Richard Velazquez Discharge: Date of : 52 Date of Service: 04/15/20 1523 Report #: [id number] Great Vessels The aortic root is normal in size. IVC is normal in size and collapses >50% with inspiration. Pericardium There is no pericardial effusion. <Conclusion> The left ventricle is normal size. There is normal left ventricular wall thickness. Left ventricular systolic function is vigorous. LVEF is >70%. Grade I - abnormal relaxation pattern. There is normal LV segmental wall motion. IVC is normal in size and collapses >50% with inspiration. <ELECTRONICALLY SIGNED> By: Souleymane Schmidt MD, FACC 04/15/20 1523 1523 1523 Souleymane Schmidt MD, FACC /INF
--- NOTE | 2020-04-15 17:46 | NUR ---
PT SITTING BEDSIDE TO EAT DINNER, SHE IS COMPLAINING OF PAIN IN LT NECK AND SHOULDER FROM FLINCHING WHEN SOME WATER FROM THE HUMIDIFICATION CONTAINER WENT INTO NASAL CANNULA AND INTO HER NOSE WHEN RT WAS CHANGING HUMIDIFICATION OUT. PAIN MEDS AND ANXIETY MEDS GIVEN, PT REQUESTED THAT THIS RN CALL THE DR ABOUT INCREASED PAIN AND I EXPLAINED THAT WE HAVE MEDS IN HER MAR THAT WE CAN TRY AND IF IT IS STILL PAINFUL SHE CAN DISCUSS THIS IN THE AM WITH THE DR. SHE AGREEED.
--- NOTE | 2020-04-15 18:33 | NUR ---
THIS AFTERNOON I REPLACED THE BUBBLER ON THE OXYGEN AND IT BLEW WATER THROUGH THE TUBING UP INTO PATIENTS NOSE. I IMMEDIATELY TOOK IT OFF AND DID NOT PUT THE BUBBLER BACK ON. PATIENT IS ON 2L WITHOUT THE BUBBLER.
[2020-04-15 20:00] VITALS: BP 108/77
[2020-04-16 03:54] LABS: INR 1.5; PROTIME 15.7 Seconds (9.20-11.50)
--- NOTE | 2020-04-16 07:42 | NUR ---
PATIENT SLEPT PART OF THE NIGHT. PATIENT WAS GIVEN PAIN MEDS ABOUT EVERY 3-4 HOURS. HEATING PAD WAS SET UP AND IS HELPING WITH HER NECK PAIN. WILL CONTINUE TO MONITOR.
[2020-04-16] MEDS ORDERED: HYDROCODON-ACE1 EAC7 PO (08:35)
--- NOTE | 2020-04-16 12:58 | CON ---
[address] [address] CONSULTATION Name: KEV OLVERA Room: [address] IN ..#: [id number] Admission: 04/09/20 Attend Phys: Richard Joseph, Discharge: Date of : 52 Report #: [id number] THIS REPORT FOR: //name// cc: Ana Luisa Tsai Tammy RNP ~ DATE OF SERVICE: 04/10/2020 CONSULT REQUESTED BY: Dr. Joseph. INDICATION FOR CONSULTATION: [id number] hypercarbic respiratory failure. HISTORY OF PRESENT ILLNESS: A 70-year-old female who has a history of oxygen dependent COPD. She is an active smoker, it also appears to be fairly obvious to me that the patient has fairly significant previously undiagnosed obstructive sleep apnea. The patient is now admitted here yesterday after history of a fall. She has fracture of the left ankle. The patient does report increasing shortness of breath as well. She has had some cough. There is not much sputum. She does not report any upper respiratory complaints. She has mild swelling of lower extremities. She has a splint in place on the left ankle fracture now. The patient is profoundly drowsy at this time, although arousable. The patient has been receiving Xanax. She takes Xanax at home. She has also been receiving fentanyl for pain; however, her drowsiness is significantly out of proportion to what would be explained by fentanyl. The patient does have disturbed sleep at night as well as sleepiness during the day, which is longstanding. The patient has had previous recent falls as well, the patient is unable to provide detailed information. PAST MEDICAL HISTORY: COPD, on oxygen long-term. Has not been on positive airway pressure therapy in the past, she is on anticoagulation. History of pulmonary emboli, status post IVC filter, type 2 diabetes, thrush, thrombocytopenia, splenectomy, compression fractures, osteoporosis, hypertension, hysterectomy, cholecystectomy, stroke x 2, back surgery, knee surgery. The patient's last available echocardiogram shows a normal left ventricular ejection fraction. This is from 2017. The right heart pressures are not elevated. SOCIAL HISTORY: The patient has an extensive history of smoking 1-2 packs a day. She says that she still smokes. No known history of heavy alcohol use or illegal drug use. CURRENT MEDICATIONS: List in [facility] reviewed. HOME MEDICATIONS: List in [facility] reviewed. FAMILY HISTORY: [place] [address] CONSULTATION Name: KEV OLVERA Room: [address]#: [id number] Admission: 04/09/20 Attend Phys: Richard Joseph, Discharge: Date of : 52 Report #: [id number] PHYSICAL EXAMINATION: GENERAL: The patient was asleep. It was difficult for me to arouse her. Eventually, I was able to arouse her. Once she was awake. She was able to speak to me and did appear to be alert, awake and oriented. VITAL SIGNS: Has a pulse of 89 and a blood pressure of 105/62. She is saturating still 96% on 2 liters nasal cannula, respiratory rate was 16-18. She is afebrile with a temperature of 36.6. Body mass index is markedly elevated to 40. HEENT: Head is normocephalic and atraumatic. Pupils are equal and reactive. She has a small mouth opening. She does not have throat erythema. She has a narrow airway Mallampati 4. NECK: Does not show raised JVP, asymmetry, mass or lymph nodes. CHEST: Symmetrical expansion on inspection and palpation. On auscultation, breath sounds are equal, but decreased. Expirations are prolonged. I do not hear any added sounds. HEART: Regular. There is no murmur. ABDOMEN: Soft and nontender. EXTREMITIES: Lower extremities show trace edema. There is a splint in place in the left side. SKIN: However, is dry and intact. NEUROLOGICAL: Moves all extremities bilaterally equally and spontaneously with no focal deficit identified. LABORATORY DATA: The patient's chest x-ray shows chronic changes. Due to the presence of chronic changes, infiltrates cannot be ruled out; however, I do not see any definite infiltrate. The patient's lab work including CBC as well as chemistries in [facility] reviewed. Elevated CPK noted. Arterial blood gases are consistent with [id number] hypercarbic respiratory failure in [facility] reviewed. COVID-19 screen is negative. Urinalysis is abnormal. This is in [facility] reviewed. ASSESSMENT AND PLAN: 1. Acute on chronic hypercarbic and hypoxemic respiratory failure. I recommend that she be placed on a BiPAP at this time. If the patient is wide awake, I feel that it still may be okay to leave her off the BiPAP; however, if she is drowsy or asleep, I strongly favor keeping her on a BiPAP and I did discuss this with the patient. Continue to titrate oxygen. The patient may benefit from setting up Trilogy for home upon discharge. 2. Chronic obstructive pulmonary disease exacerbation. I would go ahead and give her some Solu-Medrol. We will continue with nebulized bronchodilators and started with a relatively high dose of Solu-Medrol. We will consider cutting back if she is better tomorrow. I would also like to repeat an echo and review her right heart pressures again. 3. Obstructive sleep apnea based on clinical history. See discussion above. 4. History of pulmonary emboli. She is status post IVC filter, also does remain on Coumadin. [address] [address] CONSULTATION Name: KEV OLVERA Room: [address] IN [facility].#: [id number] Admission: 04/09/20 Attend Phys: Richard Joseph, Discharge: Date of : 52 Report #: [id number] 5. Left ankle fracture. Orthopedic Service is on the case. 6. Mild rhabdomyolysis. There is an elevation in CPK on initial labs which is now corrected. The patient remains on IV fluids. We will watch her blood pressure closely. If the blood pressure remains within normal range, I would have a low threshold of discontinuing IV fluids soon. The patient has had hypokalemia and hypomagnesemia and these are being replaced. 7. Pain control/anxiety management. From a respiratory point of view, limiting use of benzodiazepines and opiates may be of benefit; however, I understand that she will continue to require these. 8. Gastrointestinal prophylaxis, Protonix. Thanks for this consultation. <ELECTRONICALLY SIGNED> By: Jese Morocho MD 04/16/20 1258 [id number] osiris Chinchilla
--- NOTE | 2020-04-16 14:00 | NUR ---
MESSAGE FROM NURSING ON VM THIS AM STATING PT.WANTED TO GO TO [facility]. FAXED REFERRAL AND DISHARGE SUMMARY TO [facility] [phone]. SHE CALLED CM AND SAID THEY WOULD REVIEW AND GET BACK TO . INFORMED PT.OF ABOVE. TOLD HER I WOULD KEEP HER INFORMED. [facility] CALLED AND SAID THEY CAN ACCEPT PT. BUT THEY WILL NOT HAVE A BED UNTIL TOMORROW. TOLD HER TO PLEASE HOLD BED FOR AM. NURSING NOTIFIED. PIPER SANDRA INFORMED PT. SHE WOULD BE LEAVING TOMORROW,NOT TODAY AND GO TO [place].
--- NOTE | 2020-04-16 14:06 | CON ---
[address] [address] CONSULTATION Name: KEV OLVERA Room: [address] IN [facility].#: [id number] Admission: 04/09/20 Attend Phys: Richard Joseph, Discharge: Date of : 52 Report #: [id number] THIS REPORT FOR: //name// cc: Ana Luisa Tsai Tammy RNP ~ DATE OF SERVICE: 04/11/2020 REQUESTING PHYSICIAN: Dr. Joseph. REASON FOR CONSULTATION: Leukocytosis. HISTORY OF PRESENT ILLNESS: The patient is a 70-year-old woman, who is admitted to the hospital after sustaining fall. Apparently, she fell at home. Initially, she was able to get up herself, but next day, she tripped over a box, she fell and she was not able to get up. She lives alone, so she stayed on the floor for more than a day. She states that she felt that her legs are numb. Eventually, she was brought to the hospital by EMS. Her condition gradually recovered, numbness, tingling recovered. She has been treating for rhabdomyolysis, cellulitis, dehydration, falling and fracture as well as UTI. Hematology consult is requested. She does not have complaints of fever or chills. Denies recent weight loss. Denies any new musculoskeletal pain. PAST MEDICAL HISTORY: Significant for peripheral neuropathy, diabetes mellitus, chronic anticoagulation. 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 SOCIAL HISTORY: Lives alone. REVIEW OF SYSTEMS: See above. PHYSICAL EXAMINATION: GENERAL: Reveals overweight woman, not in acute distress. VITAL SIGNS: Blood pressure 144/81, heart rate 71, temperature 98.2, respirations 18. NECK: Supple. CARDIAC: Normal S1, S2. LUNGS: Clear. ABDOMEN: Soft. MENTAL STATUS: Alert and oriented x 3. LABORATORY DATA: Sodium 133, potassium 3.3, chloride 93, BUN 12, creatinine 0.2, total protein 8.0, albumin 3.0. WBC 16.5, hemoglobin 14.3, platelets 481. ASSESSMENT AND PLAN: 1. Leukocytosis, most likely secondary to splenectomy [place] [address] CONSULTATION Name: KEV OLVERA Quin Room: [address] IN [facility]#: [id number] Admission: 04/09/20 Attend Phys: Richard Joseph, Discharge: Date of : 52 Report #: [id number] 2. 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 Agree with workup. SPEP and UPEP has been ordered, although immunoglobulin level shows normal immunoglobulins. Thank you very much for allowing to participate in care of this patient. We will follow the patient with you. Again, the patient was seen on 04/11/2020. <ELECTRONICALLY SIGNED> By: Pedro Farias MD 04/16/20 1406 [id number] osiris Harrison
[2020-04-16 15:55] VITALS: BP 98/58
[2020-04-16 19:30] VITALS: BP 96/52
--- NOTE | 2020-04-17 00:46 | NUR ---
ASSUMED PATIENT CARE AT 1930. VITAL SIGNS STABLE ON 2L/MIN O2. MEDICATED FOR PAIN WITH PAIN MANAGEMENT PLAN DISCUSSED. SPLINT LLE CLEAN AND DRY. PATIENT NOTES SLIGHT DECREASE IN SENSATION OF FOOT BUT THIS IS NOT NEW. PATIENT STATES SHE WAS TOLD BY PT SHE SHOULD NOT GET UP. THEY WORKED WITH [employer] 04/16/20. PATIENT IS UNABLE TO TRANSFER MAINTAINING NWB STATUS. ROOM TRANSFER AT 2024 TO 304 BY BED WITH ALL BELONGINGS AT HOSPITAL REQUEST. ORIENTED TO ROOM AT ARRIVAL. CALL LIGHT WITHIN REACH AND NEEDED ITEMS WELL. PATIENT HAS BEEN TURNED Q2H. SKIN INTACT. HEAT PAD FOR LEFT NECK PAIN. HS SNACK PROVIDED. CURRENTLY RESTING QUIETLY. CONTINUE TO MONITOR.
[2020-04-17 05:20] LABS: INR 1.8; PROTIME 18.4 Seconds (9.20-11.50)
[2020-04-17 08:05] VITALS: BP 123/61
[2020-04-17 08:51] VITALS: BP 123/61
--- NOTE | 2020-04-17 09:21 | NUR ---
[facility] CAN ACCEPT PT.TODAY TO A SKILLED BED. [employer] [facility] WILL PICK PT.UP AT 1130. PT.HAS O2. VAN TO CHECK IN AT MAIN ENTRANCE TO HOSPITAL. FAXED DISCHARGE SUMMARY TO HER [phone]. CHART COPIED AND NURSING TO CALL REPORT TO [phone]. PT.NOTIFIED.
--- NOTE | 2020-04-17 11:32 | NUR ---
PT.TOLD CM THAT SHE CANNOT FIND HER DEBIT CARD. SHE FELT LIKE SHE HAD IT WHEN SHE CAME INTO THE ER. SHE SAID SHE LOOKED THROUGH HER PURSE TWICE. ONCE WITH THE PROTECTIVE SERVICES CASE WORKER YESTERDAY. CM NOTIFIED WIRE TECHNICIAN, WHO SAID SHE WILL TELL SECURITY. ASKED HER IF SHE MIGHT HAVE LEFT IT AT HOME. SHE SAID A FRIEND OF HERS WAS GOING TO LOOK FOR IT. HER FRIEND WILL ALSO BRING CLOTHES TO [place] THIS [employer] FOR HER TO HAVE FOR THERAPIES. PT.STATED SHE CALLED THE BANK AND THEY SAID NO ACTIVITY HAD OCCURED ON HER ACCOUNT SINCE SHE CAME INTO HOSPITAL. SHE SAID SHE WILL CALL BACK AND HAVE CARD CANCELLED.
--- NOTE | 2020-04-17 11:55 | NUR ---
PATIENT DISCHARGED TO [facility]. REPORT CALLED TO JAYLENE. PATIENT BELONGINGS PACKED AND IV REMOVED. PATIENT ASSISTED TO WHEELCHAIR VIA LUCIO LIFT. PATIENT DENIES ANY FURTHER NEEDS. PATIENT LEFT BY WHEELCHAIR VAN AT THIS TIME.
--- NOTE | 2020-04-20 12:47 | CON ---
[address] [address] CONSULTATION Name: KEV OLVERA Room: [address] IN ..#: [id number] Admission: 04/09/20 Attend Phys: Richard Joseph, Discharge: 04/17/20 Date of : 52 Report #: [id number] THIS REPORT FOR: //name// cc: Ana Luisa Tsai Tammy RNP ~ DATE OF SERVICE: 04/10/2020 HISTORY OF PRESENT ILLNESS: This is a 70-year-old female patient, who was evaluated by me for any etiology of her falls. She said she had one fall because her right knee gave up. The other fall was because of mechanical difficulty. She does not think she passed out. She thinks she is nervous, but she cannot move her lower extremity. She tells me that she cannot move her lower extremity since the fall. She is complaining of some back pain, but not very prominent. I reviewed her records in the computer and it looks like this patient had multiple MRIs of the lumbar and thoracic spine and they have demonstrated multiple compression fractures over a period of time. In 2014, this patient was seen by Dr. Robles for Neurological consultation and she thought she may have had a stroke. She did have an MRI of the brain in 2014 that showed no acute process. She does have a history of atrial fibrillation and from the present medication, it looks like this patient is on Coumadin. Her INR was 2.2 yesterday and it is 1.8 today. She has temperature, is running normal. REVIEW OF SYSTEMS: Is positive for multiple things. She says she is having some ringing in the ear; I do not know how old this ringing is. She has, according to the record, a history of atrial fibrillation. An EKG has shown sinus tachycardia when this patient came. She has multiple injuries when she came because of the fall. She did have some leukocytosis and that is better. She said she is pretty nervous now, but usually she is not nervous and does not take any medicine for anxiety or depression. This is a relevant 14-point review of systems. PAST MEDICAL HISTORY: Positive for what looks like compression fracture and osteoporosis. FAMILY HISTORY: Noncontributory. PHYSICAL EXAMINATION: GENERAL: She is alert. She is responsive. She is anxious. NEUROLOGY: Cranial nerve examination appears unremarkable. NEUROMUSCULAR: She moves the right upper extremity reasonably well against gravity and force, though she may be somewhat weak. Left upper extremity: She does not move well on the shoulder, but she said this is her baseline. Lower extremity on my examination: She will not move at all. However, when I do the position sense, she can tell me what the position sense is. I could not elicit any reflex in the lower extremities and both plantars are mute. In [place] [address] CONSULTATION Name: KEV OLVERA Quin Room: [address] IN M..#: [id number] Admission: 04/09/20 Attend Phys: Richard Joseph, Discharge: 04/17/20 Date of : 52 Report #: [id number] not get any movements in both lower extremities. RESPIRATORY: Appear unremarkable. There is no edema, cyanosis or jaundice. Her blood pressure is running low, like 96/53. IMPRESSION: This patient says that she cannot move her lower extremities at all. When I ask her how long it is going on, she says since yesterday. I am not certain about that history. Since she is on anticoagulation, we need to exclude the possibility of hematoma in the spine, especially because she has prior fractures, and in fact any spine lesion needs to be excluded. Her white count is high and there is no good reason for that and we should also exclude other spine pathology. CT scan is mostly unremarkable. I was going to do the MRI without contrast, but I think we should do it with contrast. Her GFR has always been normal. I did discuss with her slight chance of allergic reaction or irreversible dermatological reaction and she understands that and we will proceed with the MRI of the thoracic and lumbar spine and decide about further management after that. I will get it done stat. More than 50 minutes of time was spent taking care of this patient today and majority was spent counseling and coordinating, including reviewing her prior records and present. <ELECTRONICALLY SIGNED> By: Ray Chaudhary MD 04/20/20 1247 1157 1225Ray Chaudhary MD /nt
== END 2020-04-17 11:55 | DRG 542 ==
LOC: M.ERS 11:16 → M.TBA-ER 14:20 → M.2W 14:20 → M.TBA-ER 14:20 → M.2W 19:12 → M.ORTHSURG 04-14 19:48 → M.3W 04-16 20:23
PROVIDERS: Family Medicine; Internal Medicine; Internal Medicine Critical Care Medicine; ADMIT Family Medicine; ATTEND Family Medicine
PROC: 2W3TX1Z Immobilization of Left Foot using Splint (ICD-10-PCS; principal; 2020-04-09)
DX: M80.072A Age-related osteoporosis with current pathological fracture, left ankle and foot, initial encounter for fracture (principal); E43 Unspecified severe protein-calorie malnutrition; J96.21 Acute and chronic respiratory failure with hypoxia; J96.22 Acute and chronic respiratory failure with hypercapnia; R65.10 Systemic inflammatory response syndrome (SIRS) of non-infectious origin without acute organ dysfunction; N39.0 Urinary tract infection, site not specified; M62.82 Rhabdomyolysis; E87.2 Acidosis; D68.59 Other primary thrombophilia; Z68.41 Body mass index [BMI] 40.0-44.9, adult; J44.1 Chronic obstructive pulmonary disease with (acute) exacerbation; E11.9 Type 2 diabetes mellitus without complications; I10 Essential (primary) hypertension; E86.0 Dehydration; G47.33 Obstructive sleep apnea (adult) (pediatric); Z60.2 Problems related to living alone; D72.829 Elevated white blood cell count, unspecified; D47.3 Essential (hemorrhagic) thrombocythemia; R13.10 Dysphagia, unspecified; K59.00 Constipation, unspecified; E66.01 Morbid (severe) obesity due to excess calories; E87.6 Hypokalemia; M85.80 Other specified disorders of bone density and structure, unspecified site; Z86.711 Personal history of pulmonary embolism; Z20.828 Contact with and (suspected) exposure to other viral communicable diseases; Z95.828 Presence of other vascular implants and grafts; Z90.81 Acquired absence of spleen; Z90.710 Acquired absence of both cervix and uterus; Z90.49 Acquired absence of other specified parts of digestive tract; Z86.73 Personal history of transient ischemic attack (TIA), and cerebral infarction without residual deficits; Z88.0 Allergy status to penicillin; Z88.2 Allergy status to sulfonamides; Z82.49 Family history of ischemic heart disease and other diseases of the circulatory system; F44.4 Conversion disorder with motor symptom or deficit

== ENCOUNTER 2020-07-29 12:18 | Inpatient (IN) | payer MEDICARE, MEDICAID ==
[~2020-07-29] VITALS: Ht 162.6 cm; Wt 104.4 kg
--- NOTE | ~2020-07-29 | EMS ---
[address] [address] EMS Patient Care Report Name: SNEHAL OLVERA Room: [address] IN [facility]#: [id number] Admission: 07/29/20 Attend Phys: Ann Marie العلي Discharge: Date of : 52 Report #: [id number] THIS REPORT FOR: //name// Report Transmitted: 07/30/2020 14:46 EMS Care Summary [facility] [place] Incident [id number] @ 07/29/2020 11:25 Incident Location [address] [place] [address] Patient Snehal Olvera Female, 70 Years 1950 Patient Address [address] [place] [address] Patient History Endocrine Condition - Other,Hypertension (HTN),Chronic Obstructive Pulmonary Disease (COPD),Unspecified asthma,Personal history of pulmonary embolism,Atrial Fibrillation, Patient Allergies , Patient Medications Lisinopril, Coumadin, Neurontin, Inderal, Albuterol, Chief Complaint Pain- unknown origin Disposition Transported No Lights/[place] Dispatch Reason Sick Person Transported To [facility] Narrative Dispatched for a weakness. Upon arrival found a 70 year old female sitting on her couch. She stated that she had been having walking since the day prior. She [facility] [address] [place] [address] EMS Patient Care Report Name: SNEHAL OLVERA Room: [address] IN [facility]#: [id number] Admission: 07/29/20 Attend Phys: Ann Marie العلي Discharge: Date of : 52 Report #: [id number] stated that she had been weak since she broke her ankle in March and had just gotten out of rehab two weeks prior to the call. She stated that she had been having increased respiratory distress for the last week. She stated that while she was in the hospital she was on oxygen but was not at rehab. They had done a respiratory study on her at rehab prior to leaving. She stated that she had felt that she was starting to have trouble with her back and legs the day prior and had increased difficulty walking. She stated that she had not wanted to call 911 so she just stayed on the couch. She had soiled herself and stated that she had not been able to take her medications or get up for food. She stated that she had severe arthritis and this is what was causing her to have trouble. She stated that she had not fallen or had any trauma. She also had a history of hypertension, COPD and diabetes. Her house was beyond unlivable. She had belongings and mounds of trash without walk ways. Most of the house was inaccessible and she and no means of egress. The patient agreed in was unlivable and that she needed out of there. She was alert and oriented x 4. Skin was pale, warm and dry. Airway was open as shown by the patient speaking. Breathing was unlabored but shallow at times. No circulatory compromises at that time. Pupils equal and reactive. No facial droop or drainage. No slurred speech or confusion. No neck pain. Back pain was a 10/10 and sharp. The patient stated that it was constant. No back deformity. Equal chest rise. Lung sounds were clear and equal bilaterally. No chest pain. She was weak to the point she could not stand without assistance. Pelvis stable. No nausea or dizziness. Abdomen soft and non tender. Pelvis stable. Sensory motor function intact. No unilateral weakness. No seizure like activity. Vital signs obtained. 4 lead showed sinus rhythm. Blood glucose was 176 mg/dL. 20 gauge was placed in the left AC. No swelling, redness or leakage of fluids. 350 mL of LR was given to the patient for tachycardia. This decreased her heart rate to the 90s. She was placed on 2 L of oxygen for low oxygen saturation of 88 on room air. This brought her up to the high 90s. She was monitored throughout transport for mentation and vital sign changes. The patient was helped to a standing position and pivoted with EMS to sit in the stair chair. Harness secured and the chair was taken out to the cot. She stood with help and then sat on the cot. 5 point harness secured and side rails placed in the raised position. The cot was taken to the ambulance and secured into place. Began transport to [facility]. Upon arrival she was taken into the ER. Report was given to the RN and the patient was left in their care. Report was signed by the patient. She was moved via draw sheet from the cot to the bed. Reason for transport was for evaluation of weakness and pain. Initial Vitals @11:37Pain: 03/22, @12:14Pain: 03/22, @11:52SpO2: 95, @11:58SpO2: 91, @12:01SpO2: 97, @11:54 [place] [address] EMS Patient Care Report Name: SNEHAL OLVERA Room: [address] IN [facility].#: [id number] Admission: 07/29/20 Attend Phys: Ann Marie العلي Discharge: Date of : 52 Report #: [id number] @11:54Temp: [id number], @11:58P: 111,R: 26,BP: 145/103, @12:07P: 105,R: 23,BP: 129/89, @12:16P: 93,R: 27,BP: 126/90, @12:60WiBU8: 24, @12:61QlLI3: 20, @11:58GCS: 15, @12:07GCS: 15, @12:16GCS: 15, @11:54Glucose: 176, Assessments @11:37MENTAL:SKIN:HEENT:LUNG SOUNDS:ABDOMEN:PELVIS//GI:EXTREMITIES:PULSE:NEURO: Impression Acute Pain, not elsewhere classified Procedures @11:54Other - Medication - 2.000 Liters per Minute (l/min [fluid]) - Nasal CannulaResponse: Improved@11:54 cc () Site: Antecubital-LeftResponse: UnchangedSucceeded@12:06Digital respired carbon dioxide monitoring (regime/therapy)Response: UnchangedSucceeded@12:07Digital respired carbon dioxide monitoring (regime/therapy)Response: UnchangedSucceeded@11:543-Lead ECGResponse: UnchangedSucceeded Timeline 11:23,Call Received 11:,Dispatch Notified 11:,Psap Call 11:25,Dispatched 11:25,En Route 11:36,On Scene 11:37,At Patient 11:37,BP: / M,PULSE: ,RR: R,SPO2: Ox,ETCO2: ,BG: ,PAIN: 10,GCS: , 11:52,BP: / M,PULSE: ,RR: R,SPO2: 95 Ox,ETCO2: ,BG: ,PAIN: ,GCS: , 11:54,Depart Scene 11:54,Other - Medication - 2.000 Liters per Minute (l/min [fluid]) - Nasal Cannula,Response: Improved 11:54, cc Site: Antecubital-Left,Response: UnchangedSucceeded, 11:54,3-Lead ECG,Response: UnchangedSucceeded, 11:54,BP: / M,PULSE: ,RR: R,SPO2: Ox,ETCO2: ,BG: ,PAIN: ,GCS: , 11:54,BP: / M,PULSE: ,RR: R,SPO2: Ox,ETCO2: ,BG: ,PAIN: ,GCS: , 11:54,BP: / M,PULSE: ,RR: R,SPO2: Ox,ETCO2: ,B,PAIN: ,GCS: , 11:58,BP: / M,PULSE: ,RR: R,SPO2: 91 Ox,ETCO2: ,BG: ,PAIN: ,GCS: , 11:58,BP: 145/103 M,PULSE: 111,RR: 26 R,SPO2: Ox,ETCO2: ,BG: ,PAIN: ,GCS: , [place] [address] EMS Patient Care Report Name: SNEHAL OLVERA Room: [address] ADM IN .R.#: [id number] Admission: 07/29/20 Attend Phys: Ann Marie العلي Discharge: Date of : 52 Report #: [id number] 11:58,BP: / M,PULSE: ,RR: R,SPO2: Ox,ETCO2: ,BG: ,PAIN: ,GCS: 15, 12:01,BP: / M,PULSE: ,RR: R,SPO2: 97 Ox,ETCO2: ,BG: ,PAIN: ,GCS: , 12:06,Digital respired carbon dioxide monitoring (regime/therapy),Response: UnchangedSucceeded, 12:06,BP: / M,PULSE: ,RR: R,SPO2: Ox,ETCO2: 24 ,BG: ,PAIN: ,GCS: , 12:07,Digital respired carbon dioxide monitoring (regime/therapy),Response: UnchangedSucceeded, 12:07,BP: 129/89 M,PULSE: 105,RR: 23 R,SPO2: Ox,ETCO2: ,BG: ,PAIN: ,GCS: , 12:07,BP: / M,PULSE: ,RR: R,SPO2: Ox,ETCO2: 20 ,BG: ,PAIN: ,GCS: , 12:07,BP: / M,PULSE: ,RR: R,SPO2: Ox,ETCO2: ,BG: ,PAIN: ,GCS: 15, 12:14,BP: / M,PULSE: ,RR: R,SPO2: Ox,ETCO2: ,BG: ,PAIN: 10,GCS: , 12:14,At Destination 12:16,BP: 126/90 M,PULSE: 93,RR: 27 R,SPO2: Ox,ETCO2: ,BG: ,PAIN: ,GCS: , 12:16,BP: / M,PULSE: ,RR: R,SPO2: Ox,ETCO2: ,BG: ,PAIN: ,GCS: 15, 12:36,Call Closed Disclaimer v1.1 Copyright 2020 [employer] This EMS Care Summary contains data elements from the applicable legal record (which may be displayed differently). It is designed to provide pertinent information for the following purposes: continuity of care, clinical quality, and state data reporting. The complete legal record is available to ED staff and administrators of the receiving hospital in [facility]'s Patient Tracker. All data is provided "as is."
[~2020-07-29 12:18] MED LIST changes: +COLACE 100 MG100 MG PO; +HYDROCODON-ACE1 EAC7 PO; +PROTONIX40 M2 PO
[2020-07-29 12:27] VITALS: BP 136/80
[2020-07-29 12:51] LABS: ABSOLUTE EOSINOPHILS 0.1 thou/uL (0.0-0.7); ABSOLUTE LYMPHOCYTES 1.3 thou/uL (0.8-5.3); ABSOLUTE MONOCYTES 0.9 thou/uL (0.0-1.2); ABSOLUTE NEUTROPHILS 12.9 thou/uL (1.6-8.1); BASOPHILS 0.2 %; EOSINOPHILS 0.4 %; HEMATOCRIT 40.5 % (37.0-47.0); HEMOGLOBIN 12.8 gm/dL (12.0-15.0); LYMPHOCYTES 8.3 %; MCHC 31.5 g/dL (28.0-37.0); MCV 79.3 fL (80.0-100.0); MONOCYTES 5.8 %; MPV 7.5 fl. (7.2-11.1); NUCLEATED RBCS 0 /100WBC; PLATELET COUNT* 601 thou/uL (150-400); POLYS 85.3 %; RBC 5.11 mil/uL (4.20-5.00); RDW-CV 18.6 % (10.5-14.5); WBC 15.1 thou/uL (4.0-11.0)
[2020-07-29 13:00] LABS: CREATININE 0.8 mg/dL (0.6-1.3); POTASSIUM 3.5 mmol/L (3.5-5.1)
[2020-07-29 13:04] LABS: APTT 28.4 Seconds (25.0-31.3); INR 1.3; PROTIME 13.5 Seconds (9.20-11.50)
[2020-07-29 13:11] LABS: ALBUMIN 2.8 g/dL (3.4-5.0); TOTAL BILIRUBIN 0.4 mg/dL (<0.1-1.0); TOTAL PROTEIN 7.2 g/dL (6.4-8.2)
[2020-07-29 13:34] LABS: URINE BLOOD TRACE (Negative); URINE CLARITY CLEAR; URINE COLOR YELLOW; URINE GLUCOSE-RANDOM NEGATIVE (Negative); URINE KETONES 1+ (Negative); URINE LEUKOCYTES-REFLEX NEGATIVE (Negative); URINE NITRITE-REFLEX NEGATIVE (Negative); URINE PROTEIN NEGATIVE (Negative); URINE SPECIFIC GRAVITY 1.015 (1.005-1.030); URINE UROBILINOGEN 0.2 E.U./dl (0.2-1.0)
[2020-07-29 13:39] LABS: ICTOTEST (BILI CONFIRMATORY) Negative (Negative); URINE BILIRUBIN 1+ (Negative)
[2020-07-29 15:50] VITALS: BP 136/76
--- NOTE | 2020-07-29 16:22 | EKG ---
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 : 1950 Requested By: Nestor Young Order Number: [id number] MD: Juanpablo Coon Measurements Intervals [place] Rate: 106 P: 51 IN: 171 QRS: -46 QRSD: 103 T: 61 QT: 346 QTc: 460 Interpretive Statements Sinus tachycardia Left atrial enlargement LAD, consider left anterior fascicular block Abnormal R-wave progression, early transition Nonspecific T abnormalities, anterior leads Compared to ECG 04/09/2020 11:55:22 no change Electronically Signed On 07-29-2020 16:22:10 BICYCLE MECHANIC by Juanpablo Coon [email or web address] <ELECTRONICALLY SIGNED> By: Juanpablo Coon MD, FACC 07/29/20 1622 1241 1241 Juanpablo Coon MD, FAC /EPI
[2020-07-29] MEDS ORDERED: JANTOVEN2 MG PO (17:31)
[2020-07-29] MEDS ORDERED: JANTOVEN4 MG PO (17:31)
[2020-07-29 17:59] VITALS: BP 130/76
[2020-07-29 20:00] VITALS: BP 152/62
[2020-07-30] VITALS (7 sets, daily range): BP systolic 86–136; BP diastolic 33–75
[2020-07-30 04:58] LABS: INR 1.4; PROTIME 14.6 Seconds (9.20-11.50)
--- NOTE | 2020-07-30 18:12 | 2DMMODE ---
[place] [address] 2 D/M-MODE ECHOCARDIOGRAM Name: MAYKEV A Room: [address] IN [facility]#: [id number] Admission: 07/29/20 Attend Phys: Eber Ernandez Discharge: Date of : 52 Date of Service: 07/30/201811 Report #: [id number] THIS REPORT FOR: cc: Ana Luisa Tsai Tammy RNP Blick, David R. MD [facility] ~ APPROVED REPORT Study performed: 07/30/2020 16:30:07 EXAM: Comprehensive 2D, Doppler, and color-flow Echocardiogram Patient Location: In-Patient Room #: [facility] Status: routine BSA: 2.08 HR: 89 bpm BP: 119/63 mmHg Rhythm: NSR Other Information Study Quality: Good Indications follow up hyperdynamic LV 2D Dimensions IVSd: 10.10 (7-11mm) LVOT Diam: 18.26 (18-24mm) LVDd: 42.49 mm PWd: 8.74 (7-11mm) Ascending Ao: 34.67 (22-36mm) LVDs: 31.71 (25-40mm) Aortic Root: 34.03 mm Volumes Left Atrial Volume (Systole) LA ESV Index: 22.90 mL/m2 Aortic Valve AoV Peak Timi.: 1.56 m/s AO Peak Gr.: 9.79 mmHg LVOT Max P.03 mmHg AO Mean Gr.: 4.97 mmHg LVOT Mean P.33 mmHg LVOT Max V: 1.50 m/s AO V2 VTI: 32.21 cm LVOT Mean V: 0.94 m/s DOMINIQUE (VTI): 2.48 cm2 LVOT V1 VTI: 30.52 [place] [address] 2 D/M-MODE ECHOCARDIOGRAM Name: KEV OLVERA Room: [address] IN [facility]#: [id number] Admission: 07/29/20 Attend Phys: Eber Ernandez Discharge: Date of : 52 Date of Service: 07/30/202 Report #: [id number] Mitral Valve E/A Ratio: 0.84 MV Decel. Time: 242.42 ms MV E Max Timi.: 1.28 m/s MV PHT: 70.30 ms MVA (PHT): 3.13 cm2 TDI E/Lateral E': 12.80 E/Medial E': 11.64 Medial E' Timi.: 0.11 m/s Lateral E' Timi.: 0.10 m/s Pulmonary Valve PV Peak Timi.: 1.05 m/s PV Peak Gr.: 4.42 mmHg Left Ventricle The left ventricle is normal size. There is normal LV segmental wall motion. There is normal left ventricular wall thickness. Left ventricular systolic function is normal. The left ventricular ejection fraction is within the normal range. LVEF is 60-65%. Grade I - abnormal relaxation pattern. Right Ventricle The right ventricle is normal size. The right ventricular systolic function is normal. Atria The left atrium size is normal. The right atrium size is normal. Aortic Valve The aortic valve is normal in structure. trace aortic regurgitation is present. There is no aortic valvular stenosis. Mitral Valve There is mitral annular calcification. Mild mitral regurgitation. No evidence of mitral valve stenosis. Tricuspid Valve The tricuspid valve is normal in structure. Trace tricuspid regurgitation. Unable to assess PA pressure. Pulmonic Valve The pulmonary valve is normal in structure. Mild pulmonic [place] [address] 2 D/M-MODE ECHOCARDIOGRAM Name: KEV OLVERA Room: [address] IN [facility]#: [id number] Admission: 07/29/20 Attend Phys: Eber Ernandez Discharge: Date of : 52 Date of Service: 07/30/20 1812 Report #: [id number] Great Vessels The aortic root is normal in size. IVC is normal in size and collapses >50% with inspiration. Pericardium There is no pericardial effusion. <Conclusion> LVEF is 60-65%. Mild mitral regurgitation. trace aortic regurgitation is present. <ELECTRONICALLY SIGNED> By: Juanpablo Coon MD, FACC 07/30/201811 11 11 Juanpablo Coon MD, FAC /INF
[2020-07-31 04:08] VITALS: BP 123/63
[2020-07-31 04:40] LABS: ABSOLUTE EOSINOPHILS 0.2 thou/uL (0.0-0.7); ABSOLUTE LYMPHOCYTES 1.8 thou/uL (0.8-5.3); ABSOLUTE MONOCYTES 0.7 thou/uL (0.0-1.2); ABSOLUTE NEUTROPHILS 5.8 thou/uL (1.6-8.1); BASOPHILS 0.6 %; EOSINOPHILS 2.7 %; LYMPHOCYTES 20.5 %; MCH 25.2 pg (26.0-34.0); MCHC 31.4 g/dL (28.0-37.0); MCV 80.2 fL (80.0-100.0); MONOCYTES 8.1 %; MPV 7.6 fl. (7.2-11.1); NUCLEATED RBCS 0 /100WBC; POLYS 68.1 %; RBC 4.24 mil/uL (4.20-5.00); RDW-CV 18.1 % (10.5-14.5); WBC 8.6 thou/uL (4.0-11.0)
[2020-07-31 04:42] LABS: HEMOGLOBIN 10.7 gm/dL (12.0-15.0); PLATELET COUNT* 515 thou/uL (150-400)
[2020-07-31 04:55] LABS: INR 1.6; PROTIME 16.2 Seconds (9.20-11.50)
[2020-07-31 05:08] LABS: CALCIUM 9.2 mg/dL (8.5-10.1); CREATININE 0.5 mg/dL (0.6-1.3); MAGNESIUM 1.6 mg/dL (1.8-2.4); POTASSIUM 3.7 mmol/L (3.5-5.1); TOTAL BILIRUBIN 0.2 mg/dL (<0.1-1.0); TOTAL PROTEIN 5.7 g/dL (6.4-8.2)
[2020-07-31 08:30] VITALS: BP 116/66
--- NOTE | 2020-07-31 10:41 | EKG ---
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 : 1950 Requested By: Ebre Ernandez Order Number: [id number] Reading MD: Juanpablo Coon Measurements Intervals [place] Rate: 81 P: 51 [place]: 167 QRS: -17 QRSD: 86 T: -5 QT: 367 QTc: 426 Interpretive Statements Sinus rhythm Borderline left axis deviation Low voltage, precordial leads Nonspecific T abnormalities, anterior leads Compared to ECG 07/29/2020 12:41:27 Low QRS voltage now present Sinus tachycardia no longer present Atrial abnormality no longer present Electronically Signed On 07-31-2020 10:41:49 SOCIAL WELFARE CLERK by Juanpablo oCon [email or web address] <ELECTRONICALLY SIGNED> By: Juanpablo Coon MD, FACC 07/31/20 1041 52 52 Juanpablo Coon MD, [facility] /EPI
[2020-07-31 13:00] VITALS: BP 97/52
--- NOTE | 2020-07-31 14:07 | EKG ---
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: : 1950 Requested By: Eber Ernandez Order Number: [id number] Reading MD: Souleymane Schmidt Measurements Intervals [place] Rate: 85 P: 41 RI: 158 QRS: -15 QRSD: 85 T: 1 QT: 361 QTc: 430 Interpretive Statements Sinus rhythm Borderline left axis deviation Low voltage, extremity leads Compared to ECG 07/30/2020 21:53:15 T-wave abnormality no longer present Electronically Signed On 07-31-2020 14:07:39 MEDICAL LIBRARIAN by Souleymane Schmidt [email or web address] <ELECTRONICALLY SIGNED> By: Souleymane Schmidt MD, FACC 07/31/20 1407 0810 0810 Souleymane Schmidt MD, [facility] /EPI
[2020-07-31 20:00] VITALS: BP 133/67
[2020-08-01 04:35] LABS: INR 1.5; PROTIME 15.6 Seconds (9.20-11.50)
[2020-08-01 08:00] VITALS: BP 159/86
[2020-08-01] MEDS ORDERED: XANAX 0.5 MG0.5 M1 PO ×2 (09:56→15:38)
[2020-08-01] MEDS ORDERED: HYDROCODON-ACE1 EAC7 PO ×2 (09:56→15:38)
[2020-08-01] MEDS ORDERED: NEURONTIN 300M300 M2 PO (09:56)
[2020-08-01] MEDS ORDERED: XARELTO20 MG PO (09:56)
[2020-08-01] MEDS ORDERED: TYLENOL EXTRA500 MG PO (09:56)
[2020-08-01] MEDS ORDERED: MUCINEX600 MG PO (09:56)
[2020-08-01] MEDS ORDERED: IPRAT-ALBUT 0.5-3 ML INH (09:56)
[2020-08-01] MEDS ORDERED: SINGULAIR 10 MG10 M1 PO (09:56)
[2020-08-01] MEDS ORDERED: PULMICORT0.5 MG/2 M INH (09:56)
[2020-08-01] MEDS ORDERED: MIRALAX17 GM PO (09:56)
[2020-08-01] MEDS ORDERED: XARELTO15 MG PO (09:56)
[2020-08-01] MEDS ORDERED: LIDOPATCH1 EACH TOP (09:56)
[2020-08-01] MEDS ORDERED: CEFDINIR300 MG PO (09:56)
[2020-08-01] MEDS ORDERED: FLEXERIL PO (15:38)
[2020-08-01 16:00] VITALS: BP 154/86
--- NOTE | 2020-08-04 18:29 | CON ---
[address] [address] CONSULTATION Name: KEV OLVERA Quin Room: [address] IN .R.#: [id number] Admission: 07/29/20 Attend Phys: Ann Marie العلي Discharge: 08/01/20 Date of : 52 Report #: [id number] THIS REPORT FOR: cc: Ana Luisa Tsai Tammy RNP ~ Jese Morocho MD DATE OF SERVICE: 07/30/2020 Consult has been requested by Dr. Ernandez. INDICATION FOR CONSULTATION: Pulmonary emboli. HISTORY OF PRESENT ILLNESS: A 70-year-old female, past medical history is as mentioned below. I have seen her during a previous hospitalization at this hospital. I have subsequently also followed up with her as an outpatient. In summary, the patient has chronic hypercarbic and hypoxemic respiratory failure and has severe COPD. She also appears to have obstructive sleep apnea, but she has been unable to tolerate BiPAP previously. She has had pulmonary emboli and she has an IVC filter in place. She has been on anticoagulation with Coumadin and resides at a long-term care facility. When I saw her recently in the office, she did have spirometry consistent with severe obstruction with a component of restriction as well. We had started her on DuoNeb as well as budesonide at that time in addition to Singulair as the patient was unable to use inhalers correctly. I had also subsequently performed a nocturnal pulse oximetry, which did show significant hypoxemia and I had recommended 3 liters of oxygen while asleep. The patient had, however, decided to discuss this with her primary care physician before she has it setup and she never got it setup so far. I had also recommended a sleep study as it appeared that the patient will benefit from a BiPAP or Trilogy. The patient had also held off on setting up the same. The patient now was admitted yesterday. She was complaining of weakness, also has had some back pain and leg pain as well as right upper quadrant pain. She does continue to complain of shortness of breath, which is not significantly different from her baseline. She does have a cough. There is not much sputum. There are no upper respiratory complaints. She is not complaining of fever or chills. She does have some small pulmonary emboli on her CT. INR was recently reported to be 4.1 and then with adjustment of dose of Coumadin is now 1.3. She continues to have significant disturbed sleep at night as well as sleepiness during the day. The patient in fact was falling asleep as I was talking to her. REVIEW OF SYSTEMS: The patient's review of systems for 12 points is negative [place] [address] CONSULTATION Name: KEV OLVERA Quin Room: [address] [place] M.R.#: [id number] Admission: 07/29/20 Attend Phys: Ann Marie العلي Discharge: 08/01/20 Date of : 52 Report #: [id number] PAST MEDICAL HISTORY: Chronic hypercarbic and hypoxemic respiratory failure, the patient has used oxygen in the past, however, was not currently on oxygen at a long-term care facility. She is, however, hypoxemic on a recent nocturnal pulse ox as above; COPD, severe on last spirometry; pulmonary emboli, status post IVC filter, on Coumadin long-term; left ankle fracture, was seen by [facility] during the last hospitalization; rhabdomyolysis; left ventricle is hyperdynamic with left ventricular ejection fraction greater than 70% on the last echo; diabetes; thrush; thrombocytopenia requiring splenectomy; compression fractures; osteoporosis; hypertension; hysterectomy; cholecystectomy; back surgery; knee surgery; obstructive sleep apnea based on clinical history, has not had a sleep study. SOCIAL HISTORY: There is an extensive history of smoking between 1-2 packs a day. As of last April, she was still smoking. No known history of heavy alcohol use or illegal drug use. CURRENT MEDICATIONS: List in [facility] reviewed. HOME MEDICATIONS: List in [facility] reviewed. FAMILY HISTORY: See discussion above. ALLERGIES: SHE HAS HAD RASH WITH PENICILLINS AND HIVES WITH SULFONAMIDE ANTIBIOTICS. PHYSICAL EXAMINATION: GENERAL: She is alert, awake and oriented and in fact, later became drowsy as I was talking to her and tended to doze off and I had to wake her up. VITAL SIGNS: Had a pulse of 98 and a blood pressure of 123/68, saturating 97% on 2 liters nasal cannula, respiratory rate 16. She is afebrile with a temperature of 36.9. HEENT: Head is normocephalic and atraumatic. Pupils are equal and reactive. There is no throat erythema. Airway is Mallampati 4. NECK: Does not show raised JVP, asymmetry, mass or lymph nodes. CHEST: Symmetrical expansion on inspection and palpation. On auscultation, breath sounds are bilaterally equal, but decreased. I do not hear any added sounds. HEART: Regular. There is no murmur. ABDOMEN: Soft. There is mild tenderness in the right upper quadrant. EXTREMITIES: Lower extremities show minimal edema only. She complains of tenderness on palpation of calves, however, venous Dopplers are negative. SKIN: However, is dry and intact. NEUROLOGICAL: Moves all extremities bilaterally equally and spontaneously with [facility] [address] [place] [address] CONSULTATION Name: KEV OLVERA Quin Room: [address] [place] .R.#: [id number] Admission: 07/29/20 Attend Phys: Ann Marie العلي Discharge: 08/01/20 Date of : 52 Report #: [id number] no focal deficit identified. LABORATORY DATA: The patient's CT chest is as discussed above. I reviewed both the films as well as the report. Venous Dopplers are negative. The right upper quadrant ultrasound report is also reviewed. Lab work in [facility] also reviewed. ASSESSMENT AND PLAN: 1. Acute pulmonary emboli. These are fairly small in size. I am not certain if the patient's presentation is related to these or not, but regardless, she does need anticoagulation. She already has an IVC filter as well. I would defer discussions regarding the choice of the agent for anticoagulation to the primary service and Hematology. 2. Acute on chronic hypoxemic and hypercarbic respiratory failure. Note that I recently did a nocturnal pulse oximetry as an outpatient and ordered 3 liters of oxygen, which the patient had not had set up yet. She requires oxygen long-term. In addition, the patient does appear to need a BiPAP or Trilogy while asleep long-term. The patient had previously declined this. She says she will try it now. Therefore, I ordered BiPAP in low settings for tonight and see if she is able to wear it. We will do an ABG and see if this helps us qualify her for a Trilogy in case the patient does agree with proceeding with the same. In case, she does wear the BiPAP at night, I will do the ABG tomorrow if needed for insurance purposes. 3. Chronic obstructive pulmonary disease. Plan is budesonide and DuoNeb via nebulizer, long-term. We can switch DuoNeb over to longer acting agents later. 4. Hyperdynamic left ventricle. We will do an echo again. If the same finding is seen again, then suggest obtaining a Cardiology consult. 5. Obstructive sleep apnea based on clinical history. As above, I feel she needs to be on a BiPAP or Trilogy while asleep. Also, needs oxygen long-term. 6. History of left ankle fracture. 7. History of mild rhabdomyolysis. Thanks for this consultation. <ELECTRONICALLY SIGNED> By: Jese Morocho MD 08/04/20 [id number] [id number] Morocho MD /nt
== END 2020-08-01 18:45 | DRG 175 ==
LOC: M.ERS 12:18 → M.2W 13:43 → M.TBA-ER 13:43 → M.2W 16:02 → M.3W 07-31 13:21
PROVIDERS: Family Medicine; Internal Medicine Critical Care Medicine; ADMIT Internal Medicine; ATTEND Internal Medicine
PROC: 5A09357 Assistance with Respiratory Ventilation, Less than 24 Consecutive Hours, Continuous Positive Airway Pressure (ICD-10-PCS; principal; 2020-07-29)
DX: I26.99 Other pulmonary embolism without acute cor pulmonale (principal); J96.22 Acute and chronic respiratory failure with hypercapnia; J96.21 Acute and chronic respiratory failure with hypoxia; R65.10 Systemic inflammatory response syndrome (SIRS) of non-infectious origin without acute organ dysfunction; J98.11 Atelectasis; Z20.822 Contact with and (suspected) exposure to COVID-19; E11.9 Type 2 diabetes mellitus without complications; J44.9 Chronic obstructive pulmonary disease, unspecified; F17.210 Nicotine dependence, cigarettes, uncomplicated; M81.0 Age-related osteoporosis without current pathological fracture; I10 Essential (primary) hypertension; G47.33 Obstructive sleep apnea (adult) (pediatric); E86.0 Dehydration; Z95.828 Presence of other vascular implants and grafts; Z90.81 Acquired absence of spleen; Z90.710 Acquired absence of both cervix and uterus; Z90.49 Acquired absence of other specified parts of digestive tract; Z88.0 Allergy status to penicillin; Z88.2 Allergy status to sulfonamides; Z86.73 Personal history of transient ischemic attack (TIA), and cerebral infarction without residual deficits; Z87.81 Personal history of (healed) traumatic fracture; Z81.8 Family history of other mental and behavioral disorders

== ENCOUNTER → 2020-11-21 | Outpatient (CLI) | payer MEDICARE, MEDICAID ==
[~2020-11-21] MED LIST changes: +CEFDINIR300 MG PO; +IPRAT-ALBUT 0.5-3 ML INH; +JANTOVEN2 MG PO; +JANTOVEN4 MG PO; +LIDOPATCH1 EACH TOP; +MIRALAX17 GM PO; +MUCINEX600 MG PO; +NEURONTIN 300M300 M2 PO; +PULMICORT0.5 MG/2 M INH; +SINGULAIR 10 MG10 M1 PO; +XARELTO15 MG PO; +XARELTO20 MG PO
[2020-11-21 07:58] LABS: ABSOLUTE EOSINOPHILS 0.2 thou/uL (0.0-0.7); ABSOLUTE LYMPHOCYTES 2.7 thou/uL (0.8-5.3); ABSOLUTE MONOCYTES 0.7 thou/uL (0.0-1.2); ABSOLUTE NEUTROPHILS 6.2 thou/uL (1.6-8.1); BASOPHILS 0.5 %; HEMOGLOBIN 13.6 gm/dL (12.0-15.0); LYMPHOCYTES 27.8 %; MCH 26.1 pg (26.0-34.0); MCHC 32.4 g/dL (28.0-37.0); MCV 80.5 fL (80.0-100.0); MPV 7.7 fl. (7.2-11.1); NUCLEATED RBCS 0 /100WBC; PLATELET COUNT* 481 thou/uL (150-400); POLYS 62.7 %; RBC 5.22 mil/uL (4.20-5.00); RDW-CV 19.2 % (10.5-14.5); WBC 9.9 thou/uL (4.0-11.0)
[2020-11-21 08:24] LABS: ALBUMIN 3.2 g/dL (3.4-5.0); CREATININE 0.7 mg/dL (0.6-1.3); DIRECT BILIRUBIN 0.1 mg/dL (<0.1-0.3); MAGNESIUM 1.7 mg/dL (1.8-2.4); POTASSIUM 3.2 mmol/L (3.5-5.1); TOTAL BILIRUBIN 0.2 mg/dL (<0.1-1.0)
[2020-11-22 02:06] LABS: HEPATITIS B SURFACE AG Negative (Negative)
== END ==
LOC: M.LAB 11-20 09:02 → M.CT 07:45 → M.LAB 08:45
PROVIDERS: ATTEND Registered Nurse Diabetes Educator
DX: K76.0 Fatty (change of) liver, not elsewhere classified (principal); K57.30 Diverticulosis of large intestine without perforation or abscess without bleeding; N28.1 Cyst of kidney, acquired; S32.018D Other fracture of first lumbar vertebra, subsequent encounter for fracture with routine healing; S32.048D Other fracture of fourth lumbar vertebra, subsequent encounter for fracture with routine healing; S32.058D Other fracture of fifth lumbar vertebra, subsequent encounter for fracture with routine healing; X58.XXXD Exposure to other specified factors, subsequent encounter

== ENCOUNTER → 2021-02-11 | Outpatient (CLI) | payer MEDICARE, MEDICAID | LOC: M.ULTRA 01-28 15:22 | PROVIDERS: ATTEND Registered Nurse Diabetes Educator | DX: J98.11 Atelectasis (principal); I51.7 Cardiomegaly; I77.810 Thoracic aortic ectasia; R60.0 Localized edema ==